=== PATIENT | female | born 1995 | race Caucasian/White ===

== ENCOUNTER 2017-11-01 12:28 | Emergency (ER) | payer MEDICAID ==
[2017-11-01] MEDS ORDERED: NORMAL SALINE 1000 ML 1,000 ML IV ONE (13:43)
[2017-11-01] MEDS ORDERED: METOCLOPRAMIDE HCL INJ/PF 10 MG/2 ML SDV IV ONE (13:43)
--- NOTE | 2017-11-01 13:47 | ER Document Report ---
ED General - General Chief Complaint: Vomiting/Diarrhea Stated Complaint: VOMITING/DIARRHEA Time Seen by Provider: 11/01/17 13:38 Mode of Arrival: Ambulatory Information source: Patient Notes: 22-year-old female who is 13 weeks with a confirmed IUP presents with complaints of nausea vomiting diarrhea. Patient denies any fevers or chills denies any vaginal bleeding. Patient notes intermittent sharp pains in her abdomen TRAVEL OUTSIDE OF THE [place] IN LAST 30 DAYS: No - HPI Onset: Other Onset/Duration: Intermittent Quality of pain: Sharp Severity: Mild Pain Level: 1 Associated symptoms: Diarrhea, Nausea, Vomiting Exacerbated by: Denies Relieved by: Denies Similar symptoms previously: No Recently seen / treated by doctor: No - Related Data Allergies/Adverse Reactions: cefaclor [From Ceclor] Allergy (Unknown, Verified 11/01/17 12:29) Past Medical History - Social History Smoking Status: Never Smoker Cigarette use (# per day): No Chew tobacco use (# tins/day): No Smoking Education Provided: No Frequency of alcohol use: None Drug Abuse: None Family History: Reviewed & Not Pertinent Patient has suicidal ideation: No Patient has homicidal ideation: No Pulmonary Medical History: Denies: Hx Tuberculosis Neurological Medical History: Denies: Hx Seizures Renal/ Medical History: Denies: Hx Peritoneal Dialysis Past Surgical History: Reports: Hx Cholecystectomy, Hx Tonsillectomy. Denies: Hx Pacemaker - Immunizations Hx Diphtheria, Pertussis, Tetanus Vaccination: Yes - 06/27/13 Hx Pneumococcal Vaccination: 06/08/12 Review of Systems - Review of Systems Notes: REVIEW OF SYSTEMS: CONSTITUTIONAL : Denies fever, chills, or sweats. Denies recent illness. EENT: Denies eye, ear, throat, or mouth pain or symptoms. Denies nasal or sinus congestion or discharge. Denies throat, tongue, or mouth swelling or difficulty swallowing. CARDIOVASCULAR: Denies chest pain. Denies palpitations or racing or irregular heart beat. Denies ankle edema. RESPIRATORY: Denies cough, cold, or chest congestion. Denies shortness of breath, difficulty breathing, or wheezing. GASTROINTESTINAL: Admits nausea vomiting diarrhea GENITOURINARY: Denies difficulty urinating, painful urination, burning, frequency, blood in urine, or discharge. FEMALE GENITOURINARY: Denies vaginal bleeding, heavy or abnormal periods, irregular periods. Denies vaginal discharge or odor. MUSCULOSKELETAL: Denies back or neck pain or stiffness. Denies joint pain or swelling. SKIN: Denies rash, lesions or sores. HEMATOLOGIC : Denies easy bruising or bleeding. LYMPHATIC: Denies swollen, enlarged glands. NEUROLOGICAL: Denies confusion or altered mental status. Denies passing out or loss of consciousness. Denies dizziness or lightheadedness. Denies headache. Denies weakness or paralysis or loss of use of either side. Denies problems with gait or speech. Denies sensory loss, numbness, or tingling. Denies seizures. PSYCHIATRIC: Denies anxiety or stress. Denies depression, suicidal ideation, or homicidal ideation. ALL OTHER SYSTEMS REVIEWED AND NEGATIVE. PHYSICAL EXAMINATION: GENERAL: Well-appearing, well-nourished and in no acute distress. HEAD: Atraumatic, normocephalic. EYES: Pupils equal round and reactive to light, extraocular movements intact, conjunctiva are normal. ENT: Nares patent, oropharynx clear without exudates. Moist mucous membranes. NECK: Normal range of motion, supple without lymphadenopathy LUNGS: Breath sounds clear to auscultation bilaterally and equal. No wheezes rales or rhonchi. HEART: Regular rate and rhythm without murmurs ABDOMEN: Soft, nontender, nondistended abdomen. No guarding, no rebound. No masses appreciated. Female : deferred Musculoskeletal: Normal range of motion, no pitting or edema. No cyanosis. NEUROLOGICAL: Cranial nerves grossly intact. Normal speech, normal gait. Normal sensory, motor exams PSYCH: Normal mood, normal affect. SKIN: Warm, Dry, normal turgor, no rashes or lesions noted. Dictation was performed using [employer] voice recognition software Physical Exam - Vital signs Vitals: Temp Pulse Resp BP Pulse Ox 98.2 F 99 20 123/73 98 11/01/17 12:36 11/01/17 12:36 11/01/17 12:36 11/01/17 12:36 11/01/17 12:36 Course - Re-evaluation Re-evalutation: 11/01/17 13:47 Patient's abdominal examination is quite benign, I have low concern for any shoes with intrauterine given the confirmation lack of bleeding and severe pain as well as associated nausea vomiting and diarrhea, I believe this is more of a viral syndrome, IV fluids will be provided as well as nausea control 11/01/17 15:29 Patient states she feels much better is in no distress, patient will be treated for possible UTI as well culture pending After performing a Medical Screening Examination, I estimate there is LOW risk for ACUTE APPENDICITIS, BOWEL OBSTRUCTION, ACUTE CHOLECYSTITIS, PERFORATED DIVERTICULITIS, INCARCERATED HERNIA, PANCREATITIS, PELVIC INFLAMMATORY DISEASE, PERFORATED ULCER, ECTOPIC , or TUBO-OVARIAN ABSCESS, thus I consider the discharge disposition reasonable. Also, there is no evidence or peritonitis , sepsis, or toxicity. I have reevaluated this patient multiple times and no significant life threatening changes are noted. The patient and I have discussed the diagnosis and risks, and we agree with discharging home with close follow-up with the understanding that symptoms and presentations can change. We also discussed returning to the Emergency Department immediately if new or worsening symptoms occur. We have discussed the symptoms which are most concerning (e.g., bloody stool, fever, changing or worsening pain, vomiting) that necessitate immediate return. - Vital Signs Vital signs: Temp Pulse Resp BP Pulse Ox 98.2 F 99 20 123/73 98 11/01/17 12:36 11/01/17 12:36 11/01/17 12:36 11/01/17 12:36 11/01/17 12:36 - Laboratory Result Diagrams: 11/01/17 14:02 11/01/17 14:02 Laboratory results interpreted by me: 11/01/17 11/01/17 14:02 14:40 Seg Neutrophils % 79.0 H Urine Protein 30 H Urine Urobilinogen 4.0 H Ur Leukocyte Esterase LARGE H Discharge - Discharge Clinical Impression: Nausea vomiting and diarrhea UTI in Qualifiers: Trimester: first trimester Qualified Code(s): O23.41 - Unspecified infection of urinary tract in , first trimester Condition: Stable Disposition: HOME, SELF-CARE Instructions: Vomiting ([facility]), Diarrhea, Nonspecific ([facility]) Additional Instructions: Follow up with your physician tomorrow for further care or return to the ED IMMEDIATELY if symptoms worsen or new concerns occur. If you cannot afford to follow up with your primary care physician a list of low cost clinics have been provided at the end of your discharge papers as well. Prescriptions: Metoclopramide HCl [Reglan 10 mg Tablet] 1 - 2 tab PO Q6 #25 tablet Nitrofurantoin Monohyd/M-Cryst [Macrobid 100 mg Capsule] 100 mg PO BID #20 capsule
[2017-11-01] MEDS ORDERED: ACETAMINOPHEN 325 MG TABLET PO ONE (13:48)
[2017-11-01 14:26] LABS: ABSOLUTE EOSINOPHILS # (AUTO) 0.1 10^3/uL (0.0-0.6); ABSOLUTE LYMPHOCYTES (AUTO) 1.2 10^3/uL (0.5-4.7); ABSOLUTE MONOCYTES (AUTO) 0.6 10^3/uL (0.1-1.4); ABSOLUTE NEUT (AUTO) 7.3 10^3/uL (1.7-8.2); BASOPHILS % (AUTO) 0.2 % (0-2); EOSINOPHILS % (AUTO) 0.7 % (0-6); HEMATOCRIT 39.8 % (36.0-47.0); HEMOGLOBIN 13.6 g/dL (12.0-15.5); LYMPHOCYTES % (AUTO) 13.2 % (13-45); MEAN CORPUSCULAR HEMOGLOBIN 28.4 pg (27.0-33.4); MEAN CORPUSCULAR HGB CONC 34.2 g/dL (32.0-36.0); MEAN CORPUSCULAR VOLUME 83 fl (80-97); MONOCYTES % (AUTO) 6.9 % (3-13); PLATELET COUNT 363 10^3/uL (150-450); RED BLOOD COUNT 4.79 10^6/uL (3.72-5.28); RED CELL DISTRIBUTION WIDTH 13.5 % (11.5-14.0); TOTAL CELLS COUNTED % (AUTO) 100 %; WHITE BLOOD COUNT 9.2 10^3/uL (4.0-10.5)
[2017-11-01 14:37] LABS: ALANINE AMINOTRANSFERASE 35 U/L (9-52); ALBUMIN 3.7 g/dL (3.5-5.0); ALKALINE PHOSPHATASE 68 U/L (38-126); ANION GAP 15 (5-19); ASPARTATE AMINO TRANSFERASE 22 U/L (14-36); BILIRUBIN,DIRECT 0.3 mg/dL (0.0-0.4); BILIRUBIN,TOTAL 0.4 mg/dL (0.2-1.3); BLOOD UREA NITROGEN 12 mg/dL (7-20); CALCIUM 9.5 mg/dL (8.4-10.2); CARBON DIOXIDE 24 mmol/L (22-30); CHLORIDE 102 mmol/L (98-107); GLUCOSE 97 mg/dL (75-110); POTASSIUM 4.2 mmol/L (3.6-5.0); SODIUM 140.7 mmol/L (137-145); TOTAL PROTEIN 7.1 g/dL (6.3-8.2)
[2017-11-01 15:00] LABS: APPEARANCE,URINE CLOUDY; BILIRUBIN,URINE NEGATIVE (NEGATIVE); COLOR,URINE AMBER; GLUCOSE, URINE NEGATIVE (NEGATIVE); KETONES,URINE NEGATIVE (NEGATIVE); LEUKOCYTE ESTERASE,URINE LARGE (NEGATIVE); NITRITE,URINE NEGATIVE (NEGATIVE); PROTEIN,URINE 30 mg/dL (NEGATIVE); URINE SPECIFIC GRAVITY 1.031
[2017-11-01 15:38] VITALS: BP 115/67
== END 2017-11-01 15:36 | disposition home or self-care (01) ==
LOC: ER 12:28
DX: O23.41 Unspecified infection of urinary tract in pregnancy, first trimester (principal); O21.8 Other vomiting complicating pregnancy; R19.7 Diarrhea, unspecified; Z3A.13 13 weeks gestation of pregnancy
CPT/HCPCS: 99284; 96361; 96374; 36415; 87086; 85025; 80053; 81001; J3490; J2765; J7030

== ENCOUNTER 2018-03-30 10:34 | Emergency (ER) | payer MEDICAID ==
[2018-03-30] MEDS ORDERED: ACETAMINOPHEN 325 MG TABLET PO ONE (12:03)
[2018-03-30] MEDS ORDERED: DIPHENHYDRAMINE HCL 50 MG CAPSULE PO ONE (12:03)
--- NOTE | 2018-03-30 12:05 | ER Document Report ---
ED Medical Screen (RME) - General Chief Complaint: Abdominal Pain Stated Complaint: POSSIBLE RASH Time Seen by Provider: 03/30/18 11:59 Mode of Arrival: Ambulatory Information source: Patient Notes: Patient presents complaining of a 3 day history of pruritus to abdomen hands and feet. Patient states that the hands and feet also have a burning sensation. Patient additionally complains of upper abdominal pain for the past week with nausea. Patient is currently 35 weeks . I have greeted and performed a rapid initial assessment of this patient. A comprehensive ED assessment and evaluation of the patient, analysis of test results and completion of the medical decision making process will be conducted by additional ED providers. TRAVEL OUTSIDE OF THE [place] IN LAST 30 DAYS: No - Related Data Allergies/Adverse Reactions: cefaclor [From Ceclor] Allergy (Unknown, Verified 03/30/18 10:36) Past Medical History Pulmonary Medical History: Denies: Hx Tuberculosis Neurological Medical History: Denies: Hx Seizures Renal/ Medical History: Denies: Hx Peritoneal Dialysis Past Surgical History: Reports: Hx Cholecystectomy, Hx Tonsillectomy. Denies: Hx Pacemaker - Immunizations Hx Diphtheria, Pertussis, Tetanus Vaccination: Yes - 06/27/13 Physical Exam - Vital signs Vitals: Temp Pulse Resp BP Pulse Ox 97.7 F 85 20 118/64 99 03/30/18 11:20 03/30/18 11:20 03/30/18 11:20 03/30/18 11:20 03/30/18 11:20 - Abdominal Inspection: Gravid female Tenderness: Tender - Epigastric, right upper quadrant left upper quadrant tenderness Course - Vital Signs Vital signs: Temp Pulse Resp BP Pulse Ox 97.7 F 85 20 118/64 99 03/30/18 11:20 03/30/18 11:20 03/30/18 11:20 03/30/18 11:20 03/30/18 11:20
[2018-03-30 12:58] LABS: ALANINE AMINOTRANSFERASE 167 U/L (9-52); ALBUMIN 3.2 g/dL (3.5-5.0); ALKALINE PHOSPHATASE 134 U/L (38-126); ANION GAP 10 (5-19); ASPARTATE AMINO TRANSFERASE 124 U/L (14-36); BILIRUBIN,DIRECT 0.5 mg/dL (0.0-0.4); BILIRUBIN,TOTAL 0.8 mg/dL (0.2-1.3); BLOOD UREA NITROGEN 7 mg/dL (7-20); CALCIUM 8.8 mg/dL (8.4-10.2); CARBON DIOXIDE 23 mmol/L (22-30); CHLORIDE 106 mmol/L (98-107); GLUCOSE 81 mg/dL (75-110); LIPASE 91.2 U/L (23-300); POTASSIUM 3.9 mmol/L (3.6-5.0); SODIUM 138.7 mmol/L (137-145); TOTAL PROTEIN 6.7 g/dL (6.3-8.2)
[2018-03-30 13:33] LABS: AMORPHOUS SEDIMENT,URINE TRACE /HPF; APPEARANCE,URINE SLIGHTLY-CLOUDY; BILIRUBIN,URINE SMALL (NEGATIVE); COLOR,URINE AMBER; GLUCOSE, URINE NEGATIVE (NEGATIVE); KETONES,URINE NEGATIVE (NEGATIVE); LEUKOCYTE ESTERASE,URINE NEGATIVE (NEGATIVE); NITRITE,URINE NEGATIVE (NEGATIVE); PROTEIN,URINE 30 mg/dL (NEGATIVE); URINE SPECIFIC GRAVITY 1.027
--- NOTE | 2018-03-30 13:40 | ER Document Report ---
ED GI/ - General Chief Complaint: Abdominal Pain Stated Complaint: POSSIBLE RASH Time Seen by Provider: 03/30/18 11:59 Mode of Arrival: Ambulatory Information source: Patient Notes: Patient is a 22-year-old 002 at 35 weeks by ultrasound who presents today with some intermittent "itching and hotness" to her hands and feet. She now started to develop some intermittent brief episodes of some epigastric discomfort. She denies any radiation. She denies any chest pain or shortness of breath. She denies any cough, calf pain or leg swelling. TRAVEL OUTSIDE OF THE [place] IN LAST 30 DAYS: No - HPI Patient complains to provider of: Other - See above Onset: Other Timing/Duration: Intermittent Quality of pain: Other Severity at maximum: Mild Severity in ED: None Pain Level: Denies Location: Other - See above Vaginal bleeding (Compared to normal period): None heart tones (bpm): 138 Sexual history: Active Associated symptoms: Other - See above Exacerbated by: Denies Relieved by: Denies - Related Data Allergies/Adverse Reactions: cefaclor [From Ceclor] Allergy (Unknown, Verified 03/30/18 10:36) Past Medical History - General Information source: Patient - Social History Smoking Status: Unknown if Ever Smoked Family History: Reviewed & Not Pertinent Pulmonary Medical History: Denies: Hx Tuberculosis Neurological Medical History: Denies: Hx Seizures Renal/ Medical History: Denies: Hx Peritoneal Dialysis Past Surgical History: Reports: Hx Cholecystectomy, Hx Tonsillectomy. Denies: Hx Pacemaker - Immunizations Hx Diphtheria, Pertussis, Tetanus Vaccination: Yes - 06/27/13 Hx Pneumococcal Vaccination: 06/08/12 Review of Systems - Review of Systems Constitutional: denies: Fever EENT: denies: Eye discharge, Nose discharge Cardiovascular: denies: Chest pain, Palpitations Respiratory: denies: Short of breath Gastrointestinal: denies: Vomiting Genitourinary: denies: Dysuria Musculoskeletal: denies: Leg swelling Skin: Other - no hives. denies: Rash Neurological/Psychological: Other - no slurred speech -: Yes All other systems reviewed and negative Physical Exam - Vital signs Vitals: Temp Pulse Resp BP Pulse Ox 97.7 F 85 20 118/64 99 03/30/18 11:20 03/30/18 11:20 03/30/18 11:20 03/30/18 11:20 03/30/18 11:20 Notes: Reviewed vital signs and nursing note as charted by RN. CONSTITUTIONAL: Alert and oriented and responds appropriately to questions. Well -appearing; well-nourished HEAD: Normocephalic; atraumatic EYES: Sclerae non-icteric ENT: Normal nose; no rhinorrhea; moist mucous membranes; pharynx without lesions noted NECK: Supple without meningismus; non-tender; no cervical lymphadenopathy, no masses CARD: Regular rate and rhythm; no murmurs, no clicks, no rubs, no gallops; symmetric distal pulses RESP: Normal chest excursion without splinting or tachypnea; breath sounds clear and equal bilaterally; no wheezes, no rhonchi, no rales ABD/GI: Normal bowel sounds; gravid consistent with dates; no tenderness to deep palpation of all 4 quadrants of the abdomen BACK: The back appears normal and is non-tender to palpation, there is no CVA tenderness EXT: Normal ROM in all joints; non-tender to palpation; no edema SKIN: Normal color for age and race; warm; dry; no acute lesions noted NEURO: Moves all extremities equally; Motor and sensory function intact PSYCH: The patient's mood and manner are appropriate. Grooming and personal hygiene are appropriate. Course - Re-evaluation Re-evalutation: 03/30/18 13:42 Given the above history and physical examination, with previous cholecystectomy , we ordered a liver panel, lipase, and a CBC and chemistry. Patient's liver panel as recorded. Platelets as recorded. Patient still has no tenderness. No cough or chest pain to indicate a pulmonary pathology. I have called and consulted [facility], Dr. Ruiz Castro who is asked me to send the patient upstairs to labor and delivery. Patient will be discharged from the facility and sent upstairs expeditiously. - Vital Signs Vital signs: Temp Pulse Resp BP Pulse Ox 97.7 F 85 20 118/64 99 03/30/18 11:20 03/30/18 11:20 03/30/18 11:20 03/30/18 11:20 03/30/18 11:20 - Laboratory Result Diagrams: 03/30/18 12:25 03/30/18 12:25 Laboratory results interpreted by me: 03/30/18 12:25 Direct Bilirubin 0.5 H AST 124 H ALT 167 H Alkaline Phosphatase 134 H Albumin 3.2 L Discharge - Discharge Clinical Impression: Transaminitis and not yet delivered Qualifiers: Trimester: third trimester Qualified Code(s): Z34.93 - Encounter for supervision of normal , unspecified, third trimester Condition: Good Disposition: HOME, SELF-CARE Additional Instructions: Please go directly upstairs to labor and delivery as we have expedited for you.
[2018-03-30 14:02] LABS: ABSOLUTE BASOPHILS # (AUTO) 0.1 10^3/uL (0.0-0.2); ABSOLUTE EOSINOPHILS # (AUTO) 0.1 10^3/uL (0.0-0.6); ABSOLUTE LYMPHOCYTES (AUTO) 1.8 10^3/uL (0.5-4.7); ABSOLUTE MONOCYTES (AUTO) 0.7 10^3/uL (0.1-1.4); ABSOLUTE NEUT (AUTO) 6.7 10^3/uL (1.7-8.2); BASOPHILS % (AUTO) 0.5 % (0-2); EOSINOPHILS % (AUTO) 1.5 % (0-6); HEMATOCRIT 34.4 % (36.0-47.0); HEMOGLOBIN 11.7 g/dL (12.0-15.5); LYMPHOCYTES % (AUTO) 19.1 % (13-45); MEAN CORPUSCULAR HEMOGLOBIN 28.3 pg (27.0-33.4); MEAN CORPUSCULAR VOLUME 83 fl (80-97); MONOCYTES % (AUTO) 7.6 % (3-13); PLATELET COUNT 309 10^3/uL (150-450); RED BLOOD COUNT 4.12 10^6/uL (3.72-5.28); RED CELL DISTRIBUTION WIDTH 12.9 % (11.5-14.0); SEGMENTED NEUTROPHILS % (AUTO) 71.3 % (42-78); TOTAL CELLS COUNTED % (AUTO) 100 %; WHITE BLOOD COUNT 9.3 10^3/uL (4.0-10.5)
[2018-03-30 14:20] VITALS: BP 114/67
== END 2018-03-30 14:00 | disposition home or self-care (01) ==
LOC: ER 10:34
DX: O26.893 Other specified pregnancy related conditions, third trimester (principal); R74.8 Abnormal levels of other serum enzymes; R10.13 Epigastric pain; O99.713 Diseases of the skin and subcutaneous tissue complicating pregnancy, third trimester; L29.9 Pruritus, unspecified; Z3A.35 35 weeks gestation of pregnancy; Z88.1 Allergy status to other antibiotic agents; Z90.49 Acquired absence of other specified parts of digestive tract
CPT/HCPCS: 99284; 36415; 83690; 85025; 80053; 81001; J3490 ×2

== ENCOUNTER 2018-03-30 14:02 | Outpatient (CLI) | payer MEDICAID ==
[2018-03-30] MEDS ORDERED: URSODIOL 300 MG CAPSULE PO ONE (15:00)
--- NOTE | 2018-03-30 16:03 | Non Stress Test Report ---
Non Stress Test Datetime Report Generated by CPN: 03/30/2018 16:03 DEMOGRAPHIC EGA NST: 32.3 INDICATION Indication for Study: Ordered by Provider Indication for Study: Ordered by Provider VITAL SIGNS Temperature - NST: 98.2 Pulse - NST: 74 RESP - NST: 16 NBPSYS NST: 89 NBPDIA NST: 54 MONITORING Monitor Explained: Monitor Explained; Test Explained; Patient Verbalized Understanding Time on Monitor: 03/30/2018 14:25 Time on Monitor: 03/30/2018 14:19 Time off Monitor: 03/30/2018 15:55 Time off Monitor: 03/30/2018 15:55 NST Duration: 90 NST Duration: 96 NST INTERVENTIONS NST Interventions: PO Hydration NST Interventions: PO Hydration Physician Notified NST: Dr. Castro Physician Notified NST: Dr. Castro BABY A: [id number] BABY A Movement : Present Movement : Present Contraction Frequency : 0 Contraction Frequency : Irregular (Annotations: Data stored by [facility] on behalf of user) FHR Baseline : 135 Accelerations : 15X15 Accelerations : 15X15 Decelerations : None Decelerations : None Variability : Moderate 6-25bpm Variability : Moderate 6-25bpm NST Review: Meets Criteria for Reactive NST NST Review: Meets Criteria for Reactive NST NST Review and Verified By : Giovanni Porter RN NST Review and Verified By : BRIANDA MonaeT Results: Reactive NST REPORT Report Trigger: Send Report
== END 2018-03-30 16:00 | disposition home or self-care (01) ==
LOC: LC 14:02
PROVIDERS: ATTEND Obstetrics & Gynecology
PROC: 4A1HXCZ Monitoring of Products of Conception, Cardiac Rate, External Approach (ICD-10-PCS; principal; 2018-03-30)
DX: Z34.93 Encounter for supervision of normal pregnancy, unspecified, third trimester (principal)
CPT/HCPCS: 59025; 36415; 82239; J3490

== ENCOUNTER 2018-04-07 09:21 | Outpatient (CLI) | payer MEDICAID ==
--- NOTE | 2018-04-07 09:54 | Non Stress Test Report ---
Non Stress Test Datetime Report Generated by CPN: 04/07/2018 09:53 DEMOGRAPHIC EGA NST: 33.4 INDICATION Indication for Study: Ordered by Provider MONITORING Time on Monitor: 04/07/2018 09:30 Time off Monitor: 04/07/2018 09:50 NST Duration: 20 NST INTERVENTIONS NST Interventions: PO Hydration Physician Notified NST: A. Mulligan, CNM BABY A: [id number] BABY A Movement : Present Contraction Frequency : 0 FHR Baseline : 135 Accelerations : 15X15 Accelerations : 15X15 Decelerations : None Variability : Moderate 6-25bpm NST Review: Meets Criteria for Reactive NST NST Review: Meets Criteria for Reactive NST NST Review and Verified By : BRIANDA BAZZI Results: Reactive NST Results: Reactive NST REPORT Report Trigger: Send Report
== END 2018-04-07 09:54 | disposition home or self-care (01) ==
LOC: LC 09:21
PROVIDERS: ATTEND Obstetrics & Gynecology
PROC: 4A1HXCZ Monitoring of Products of Conception, Cardiac Rate, External Approach (ICD-10-PCS; principal; 2018-04-07)
DX: Z34.93 Encounter for supervision of normal pregnancy, unspecified, third trimester (principal)
CPT/HCPCS: 59025

== ENCOUNTER 2018-04-10 14:47 | Outpatient (CLI) | payer MEDICAID ==
--- NOTE | 2018-04-10 15:34 | Non Stress Test Report ---
Non Stress Test Datetime Report Generated by CPN: 04/10/2018 15:34 DEMOGRAPHIC EGA NST: 34.0 INDICATION Indication for Study: Ordered by Provider MONITORING Monitor Explained: Monitor Explained; Test Explained; Patient Verbalized Understanding Time on Monitor: 04/10/2018 14:58 Time off Monitor: 04/10/2018 15:33 NST Duration: 35 NST INTERVENTIONS NST Interventions: PO Hydration Physician Notified NST: Artis, CNM BABY A: [id number] BABY A Movement : Present Contraction Frequency : 0 Accelerations : 15X15 Decelerations : None Variability : Moderate 6-25bpm NST Review: Meets Criteria for Reactive NST NST Review and Verified By : Nadia Camp RNC NST Results: Reactive NST REPORT Report Trigger: Send Report
[2018-04-10 16:15] LABS: ALANINE AMINOTRANSFERASE 57 U/L (9-52); ALKALINE PHOSPHATASE 118 U/L (38-126); AMYLASE 32 U/L (30-110); ASPARTATE AMINO TRANSFERASE 36 U/L (14-36); BILIRUBIN,DIRECT 0.5 mg/dL (0.0-0.4); BILIRUBIN,TOTAL 0.5 mg/dL (0.2-1.3); TOTAL PROTEIN 5.9 g/dL (6.3-8.2)
== END 2018-04-10 16:27 | disposition home or self-care (01) ==
LOC: LC 14:47
PROVIDERS: ATTEND Obstetrics & Gynecology Gynecology
PROC: 4A1HXCZ Monitoring of Products of Conception, Cardiac Rate, External Approach (ICD-10-PCS; principal; 2018-04-10)
DX: Z34.83 Encounter for supervision of other normal pregnancy, third trimester (principal)
CPT/HCPCS: 36415; 59025; 80076; 82150; 83690

== ENCOUNTER 2018-04-30 19:35 | Inpatient (IN) | payer MEDICAID ==
[2018-04-30] MEDS ORDERED: RINGERS SOLUTION,LACTATED 1,000 ML IV ONE (20:18)
[2018-04-30] MEDS ORDERED: OXYTOCIN/NORMAL SALINE 20 UNIT/1,000 ML RTUINJ IV PRN (20:18)
[2018-04-30 20:45] LABS: APPEARANCE,URINE CLOUDY; BILIRUBIN,URINE SMALL (NEGATIVE); CALCIUM OXALATE CRYSTALS,URINE TOO NUMEROUS TO CNT /HPF; GLUCOSE, URINE NEGATIVE (NEGATIVE); KETONES,URINE NEGATIVE (NEGATIVE); LEUKOCYTE ESTERASE,URINE MODERATE (NEGATIVE); NITRITE,URINE NEGATIVE (NEGATIVE); PROTEIN,URINE 30 mg/dL (NEGATIVE); URINE SPECIFIC GRAVITY 1.031
[2018-04-30 20:46] LABS: COLOR,URINE YELLOW
--- NOTE | 2018-04-30 20:50 | Admission Physical ---
Datetime Report Generated by CPN: 04/30/2018 20:50 CURRENT ADMISSION Chief Complaint: Scheduled Induction of Labor Indication for Induction: Polyhydramnios; Other Indication for Induction- Other: Cholestasis, polyhydramnios Admit Impression : Term, Intrauterine ; No Active Labor; Intact Membranes; Induction of Labor Admit Impression- Other: TOLAC Admit Plan: Admit to Unit; Initiate Labor Induction Protocol ALLERGIES Medication Allergies: Yes Medication Allergies: cefaclor (03/30/2018) OBSTETRICAL HISTORY EDC: 05/22/2018 00:00 : 3 Para: 2 Livin PHYSICAL EXAM General: Normal HEENT: Normal Neurologic: Normal Thyroid: Deferred Heart: Normal Lungs: Normal Breast: Deferred Back: Normal Abdomen: Normal Genitourinary Exam: Normal Extremities: Normal DTRs: Normal Pelvic Type: Adequate Vital Signs: Reviewed VAGINAL EXAM Contraction Comments: none MEMBRANES Membranes: Intact FETUS A EGA: 36.6 Monitoring: External US FHR- Baseline: 130 Variability: Moderate 6-25bpm Accelerations: 15X15 Decelerations: None FHR Category: Category I Presentation: Vertex Admit Comment: 22yo at 36+6ega presents for IOL due to cholestasis of with polyhydramnios. H/o in 2011 with 7#11 at 40wks, G2 was Primary C/S for suspected macrosomia (after IOL attempt) 9#5oz. She desires TOLAC. SHe has been counseled regarding risks (maternal/) of TOLAC and desires TOLAC. She was diagnosed with Cholstasis of with Bile acids of 14.8 at 33wks and started on ursodiol. GBS negative. IOL with Cooks catheter and low dose pitocin. Anticipate . INFORMED CONSENT Informed Consent Obtained: Vaginal Delivery; Induction of Labor; Vaginal After ; Risks, Benefits and Alternatives Discussed Signature: with User ID: [email or web address]
[2018-04-30 20:58] LABS: URINE AMPHETAMINES SCREEN NEGATIVE; URINE BARBITURATES SCREEN NEGATIVE; URINE BENZODIAZEPINES SCREEN NEGATIVE; URINE COCAINE SCREEN NEGATIVE; URINE MARIJUANA (THC) SCREEN NEGATIVE; URINE METHADONE SCREEN NEGATIVE; URINE PHENCYCLIDINE SCREEN NEGATIVE
[2018-04-30 20:58] LABS: ABSOLUTE EOSINOPHILS # (AUTO) 0.1 10^3/uL (0.0-0.6); ABSOLUTE LYMPHOCYTES (AUTO) 1.6 10^3/uL (0.5-4.7); ABSOLUTE MONOCYTES (AUTO) 0.6 10^3/uL (0.1-1.4); ABSOLUTE NEUT (AUTO) 5.6 10^3/uL (1.7-8.2); BASOPHILS % (AUTO) 0.4 % (0-2); EOSINOPHILS % (AUTO) 1.2 % (0-6); HEMATOCRIT 32.3 % (36.0-47.0); HEMOGLOBIN 10.8 g/dL (12.0-15.5); LYMPHOCYTES % (AUTO) 20.5 % (13-45); MEAN CORPUSCULAR HEMOGLOBIN 27.1 pg (27.0-33.4); MEAN CORPUSCULAR HGB CONC 33.4 g/dL (32.0-36.0); MEAN CORPUSCULAR VOLUME 81 fl (80-97); MONOCYTES % (AUTO) 8.1 % (3-13); PLATELET COUNT 319 10^3/uL (150-450); RED BLOOD COUNT 3.97 10^6/uL (3.72-5.28); RED CELL DISTRIBUTION WIDTH 13.6 % (11.5-14.0); SEGMENTED NEUTROPHILS % (AUTO) 69.8 % (42-78); TOTAL CELLS COUNTED % (AUTO) 100 %
[2018-04-30 21:20] LABS: INTERNATIONAL RATION (INR) 0.91; PROTHROMBIN TIME 12.7 SEC (11.4-15.4)
[2018-04-30 21:21] LABS: ALANINE AMINOTRANSFERASE 120 U/L (9-52); ALBUMIN 3.2 g/dL (3.5-5.0); ALKALINE PHOSPHATASE 152 U/L (38-126); ANION GAP 12 (5-19); ASPARTATE AMINO TRANSFERASE 90 U/L (14-36); BILIRUBIN,DIRECT 0.3 mg/dL (0.0-0.4); BILIRUBIN,TOTAL 0.6 mg/dL (0.2-1.3); BLOOD UREA NITROGEN 10 mg/dL (7-20); CALCIUM 9.2 mg/dL (8.4-10.2); CARBON DIOXIDE 23 mmol/L (22-30); CHLORIDE 105 mmol/L (98-107); GLUCOSE 105 mg/dL (75-110); PARTIAL THROMBOPLASTIN TIME 28.5 SEC (23.5-35.8); SODIUM 140.4 mmol/L (137-145); TOTAL PROTEIN 6.5 g/dL (6.3-8.2)
[2018-04-30] MEDS ORDERED: OXYTOCIN/NORMAL SALINE 20 UNIT/1,000 ML RTUINJ ONE (21:53)
[2018-04-30] MEDS: RINGERS SOLUTION,LACTATED 1,000 ML IV PRN (22:10)
--- NOTE | 2018-04-30 22:28 | L&D Progress Notes ---
PROGRESS NOTES Datetime Report Generated by CPN: 04/30/2018 22:28 PROGRESS NOTE Impression: Reassuring Heart Rate Procedures: Sterile Vag Exam Plan: Continue Present Management; Induction; Cervical Ripening Informed Consent Obtained: Vaginal Delivery; Induction of Labor; Risks, Benefits and Alternatives Discussed Informed Consent Obtained: Vaginal Delivery; Induction of Labor; Vaginal After ; Risks, Benefits and Alternatives Discussed Vital Signs : Reviewed Comment: EFW 7#10oz on US on 04/24 at 36wks. MVP/SDP 8.44cm. Cvx now 1cm and cooks catheter placed and will begin low dose pitocin. All notified of TOLAC and consents signed and reviewed. VAGINAL EXAM Dilatation: 1 Effacement: thick Station: hi Contractions: none MEMBRANES Membranes: Intact FETUS A FHR - Baseline: 120 Monitoring: External US Variability: Moderate 6-25bpm Accelerations: 15X15 Decelerations: None FHR Category: Category I Estimated Weight (gm): 3447 Presentation: Vertex SIGNATURE SIGNATURE: [id number];14,[id number];13,[id number] SIGNATURE: [id number];14,[id number] SIGNATURE: [id number] SIGNATURE: [id number] SIGNATURE: [id number] Signature: with User ID: [email or web address]
[2018-05-01] MEDS ORDERED: ACETAMINOPHEN 325 MG TABLET ONE ×3 (03:49→22:41)
[2018-05-01] MEDS ORDERED: ACETAMINOPHEN 325 MG TABLET PO ONE (04:10)
[2018-05-01] MEDS: RINGERS SOLUTION,LACTATED 1,000 ML IV PRN ×4 (07:14→18:18)
--- NOTE | 2018-05-01 08:00 | L&D Progress Notes ---
PROGRESS NOTES Datetime Report Generated by CPN: 05/01/2018 08:00 PROGRESS NOTE Impression: Normal Progression of Labor Procedures: Sterile Vag Exam Plan: Continue Present Management; Induction; Cervical Ripening Informed Consent Obtained: Vaginal Delivery; Induction of Labor; Risks, Benefits and Alternatives Discussed Comment: IOL for cholestasis. Cooks catheter in both bulbs - removed. Cvx now but not in active labor yet. Pt desires epidural. Plan epidural and then US for presentation again prior to AROM. Vtx by US now. Pt verbalized understanding of plan to continue with IOL with pitocin and ok for epidural. Would try to delay AROM for now until baby more well applied to cervix. VAGINAL EXAM Dilatation: 5 Effacement: 60 Station: -3 Contractions: q 2-4 FETUS A FHR - Baseline: 155 Monitoring: External US Variability: Moderate 6-25bpm Accelerations: 15X15 Decelerations: None FHR Category: Category I FETUS C SIGNATURE: [id number];14,[id number];[id number] Signature: with User ID: [email or web address]
[2018-05-01] MEDS ORDERED: EPHEDRINE SULFATE INJ 50 MG/1 ML AMPULE ONE (08:02)
[2018-05-01] MEDS ORDERED: FENTANYL/BUPIVACAINE/NS/PF 300 MCG/150 ML RTUINJ EPI ONE ×2 (08:03→21:37)
[2018-05-01] MEDS ORDERED: BUPIVACAINE HCL 0.5 % INJ/PF 30 ML SDV ONE (08:03)
[2018-05-01] MEDS ORDERED: OXYTOCIN 10 UNIT/ML VIAL ONE (08:28)
[2018-05-01] MEDS ORDERED: LIDOCAINE 1% INJ-PF (10 MG/ML) 30 ML SDV ONE (08:29)
[2018-05-01] MEDS ORDERED: OXYTOCIN/NORMAL SALINE 0 UNIT/0 ML RTUINJ ONE (08:29)
[2018-05-01] MEDS ORDERED: MISOPROSTOL 0.2 MG TABLET ONE (08:29)
[2018-05-01] MEDS ORDERED: ACETAMINOPHEN 325 MG TABLET PO PRN (09:43)
--- NOTE | 2018-05-01 13:37 | L&D Progress Notes ---
PROGRESS NOTES Datetime Report Generated by CPN: 05/01/2018 13:37 PROGRESS NOTE Impression Other: IUP @37w- IOL Procedures: Artificial ROM; Scalp Electrode; Sterile Vag Exam Plan: Continue Present Management Informed Consent Obtained: Vaginal Delivery; Induction of Labor; Vaginal After ; Risks, Benefits and Alternatives Discussed Vital Signs : Reviewed; Within Normal Limits Comment: S: comfortable with epidural placement, agreeable to AROM O:vss, cervix as stated, pit @ 20mu/min A: IUP @ 37w-IOL secondary to cholestasis, polyhydramnios attempting , AROM-cephalic presentation verified via u/s prior to procedure. Large amount of clear fluid, fse inserted also without difficulty, pt. tolerated well P: continue IOL, reasses as clinically indicated, earlier prn MEMBRANES Membranes: Ruptured Amniotic Fluid Color: Clear FETUS A FHR - Baseline: 130 Monitoring: External US; Internal Scalp Electrode Variability: Moderate 6-25bpm Accelerations: 15X15 FHR Category: Category I FHR Comments: no decels prior to AROM some variables after which resolved with repositioning FETUS C SIGNATURE: [id number];14,[id number];13,[id number] Assignment: Rosy Vaughn MD Signature: with User ID: [email or web address] : with User ID: [email or web address]
[2018-05-01] MEDS ORDERED: ONDANSETRON HCL INJ/PF 4 MG/2 ML SDV ONE (17:57)
--- NOTE | 2018-05-01 19:26 | L&D Progress Notes ---
PROGRESS NOTES Datetime Report Generated by CPN: 05/01/2018 19:26 PROGRESS NOTE Impression: Normal Progression of Labor Procedures: Sterile Vag Exam Plan: Continue Present Management Informed Consent Obtained: Vaginal Delivery Vital Signs : Reviewed; Within Normal Limits Comment: Pt progressing and comfortable; pit at 8 VAGINAL EXAM Dilatation: 7-8 Effacement: 80-90 Station: -2 Contractions: q2-3 MEMBRANES Membranes: Ruptured FETUS A FHR - Baseline: 140s Variability: Moderate 6-25bpm Accelerations: 15X15 Decelerations: None FHR Category: Category I : 37.0 FETUS C SIGNATURE: [id number];[id number];10,[id number] Signature: with User ID: [email or web address]
[2018-05-01] MEDS ORDERED: MEASLES,MUMPS&RUBELLA VACC/PF 0.5 ML VIAL SUBCUT PRN (22:34)
[2018-05-01] MEDS ORDERED: ZOLPIDEM TARTRATE 5 MG TABLET PO PRN (22:34)
[2018-05-01] MEDS ORDERED: ACETAMINOPHEN WITH CODEINE #3 TABLET PO PRN ×2 (22:34)
[2018-05-01] MEDS ORDERED: DIPH/PERTUSS(ACELL)/TETANUS VAC/PF 0.5 ML SYR (>=10YO) IM PRN (22:34)
[2018-05-01] MEDS ORDERED: DIBUCAINE 1% OINTMENT 28 GM TP PRN (22:34)
[2018-05-01] MEDS ORDERED: OXYTOCIN/NORMAL SALINE 20 UNIT/1,000 ML RTUINJ IV PRN (22:34)
[2018-05-01] MEDS ORDERED: BENZOCAINE/MENTHOL AEROSOL SPRAY 56 ML TOP PRN (22:34)
[2018-05-01] MEDS ORDERED: IBUPROFEN 800 MG TABLET ONE (22:41)
[2018-05-01] MEDS ORDERED: OXYTOCIN/NORMAL SALINE 20 UNIT/1,000 ML RTUINJ ONE (22:42)
--- NOTE | 2018-05-01 23:15 | Warning Signs in Babies ---
VOD Warning Signs Datetime Report Generated by N: 05/01/2018 23:15 VOD#608 -Warning Signs in Babies: Viewed with Parent(s)/Family (05/01/2018 23:00:Gunjan Olsen RN)
--- NOTE | 2018-05-02 00:06 | Delivery Summary ---
Del Sum A-C Datetime Report Generated by CPN: 05/02/2018 00:06 DELIVERY PERSONNEL DELIVERY PERSONNEL: [id number] Delivery Doctor:: Rosy Vaughn MD Labor and Delivery Nurse:: Gunjan Olsen RNdesk attendant Nurse:: Sagrario Duran RN Senior Marketing Data Analyst/INFORMATICIST: Katie Wills, BIOLOGICAL SCIENCE TECHNICIAN FISH MATERNAL INFORMATION Delivery Anesthesia: Epidural Medications During Delivery: Cytotec 800 mcg TN Medications After Delivery: Pitocin Drip 20 Units/1000ml NSS; Cytotec 800mcg Per Rectum/Vagina Estimated Blood Loss (ml): 400 ml Maternal Complications: Other Complication Details: TOLAC Provider Comments: of a viable female at 2216 with an OA presentation; APGARS 8@1, 9@5; no lacerations LABOR SUMMARY EDC: 05/22/2018 00:00 No. Babies in Womb: 1 Attempted: Yes Labor Anesthesia: Epidural LABOR INFORMATION Reason for Induction: Polyhydramnios; Other Reason for Induction- Other: Cholestasis Onset of Labor: 05/01/2018 08:00 Complete Dilatation: 05/01/2018 22:03 Cervical Ripening Agents: Mallory Balloon Oxytocin: Induction Group B Beta Strep: Negative Antibiotics # of Doses: 0 Steroids Given: None Reason Steroids Not Administered: Not Applicable MEMBRANES Membranes Rupture Method: Artificial Rupture of Membranes: 05/01/2018 12:55 Length of Rupture (hr): 9.35 Amniotic Fluid Color: Clear Amniotic Fluid Amount: Large Amniotic Fluid Odor: None STAGES OF LABOR Stage 1 hr: 14 Stage 1 min: 3 Stage 2 hr: 0 Stage 2 min: 13 Stage 3 hr: 0 Stage 3 min: 3 Total Time in Labor hr: 14 Total Time in Labor min: 19 VAGINAL DELIVERY Episiotomy: None Laceration #1: None Laceration Extension #1: N/A Laceration Repair: Not Applicable Sponge Count Correct: N/A Sharps Count Correct: N/A CSECTION DELIVERY Primary Indication: N/A Secondary Indication: N/A CSection Incidence: N/A Labor: N/A Elective: N/A CSection Incision: N/A BABY A INFORMATION Infant Delivery Date/Time: 05/01/2018 22:16 Method of Delivery: Vaginal Born in Route : No : Successful Forceps: N/A Vacuum Extraction: N/A Shoulder Dystocia : No PRESENTATION/POSITION BABY A Presentation: Cephalic Cephalic Presentation: Vertex Vertex Position: Left Occipital Anterior Breech Presentation: N/A PLACENTA INFORMATION BABY A Placenta Delivery Time : 05/01/2018 22:19 Placenta Method of Delivery: Spontaneous Placenta Status: Delivered SCORES BABY A Heart Rate 1 min: >100 bpm Resp Effort 1 min: Good Cry Reflex Irritability 1 min: Cough or Sneeze or Pulls Away Muscle Tone 1 min: Active Motion Color 1 min: Blue/Pale Resuscitation Effort 1 min: Tactile Stimulation SCORE 1 MIN: 8 Heart Rate 5 min: >100 bpm Resp Effort 5 min: Good Cry Reflex Irritability 5 min: Cough or Sneeze or Pulls Away Muscle Tone 5 min: Active Motion Color 5 min: Body Red Dog [place], Extremities Blue Resuscitation Effort 5 min: Tactile Stimulation SCORE 5 MIN: 9 INFORMATION BABY A Gestational Age at Delivery: 37.0 Gestational Status: Early Term- 37- 38.6 Weeks Outcome : Liveborn Infant Condition : Stable Sex: Female IDENTIFICATION BABY A Verification Date/Time: 05/01/2018 22:27 ID Band Number: [id number] Mother's Name Verified: Yes Infant RN Verifying Infant: Marcio Olsen RN Additional Verifying Personnel: [employer] [place] [address] WEIGHT/LENGTH BABY A Infant Birthweight (gm): 2960 Weight (lb): 6 Weight (oz): 8 Length (in): 20.00 Length (cm): 50.80 CORD INFORMATION BABY A No. Cord Vessels: 3 Nuchal Cord : N/A Cord Blood Taken: Yes-For Storage (Mom's Blood type +) Suction: Mouth; Nose ASSESSMENT BABY A Infant Complications: None Physical Findings at Delivery: Within Normal Limits Respirations: Appears Normal Skin to Skin: Yes Echocardiographer/ALS Called : No Care By: J. Ackerman RN Transferred To: Remains with Mother BABY B INFORMATION : N/A SIGNATURES Signature: with User ID: [email or web address]
[2018-05-02 05:52] LABS: HEMATOCRIT 27.4 % (36.0-47.0); HEMOGLOBIN 9.2 g/dL (12.0-15.5); INTERNATIONAL RATION (INR) 1.05; MEAN CORPUSCULAR HGB CONC 33.5 g/dL (32.0-36.0); MEAN CORPUSCULAR VOLUME 81 fl (80-97); PLATELET COUNT 222 10^3/uL (150-450); PROTHROMBIN TIME 14.2 SEC (11.4-15.4)
[2018-05-02 05:53] LABS: PARTIAL THROMBOPLASTIN TIME 34.6 SEC (23.5-35.8)
[2018-05-02 06:03] LABS: ALANINE AMINOTRANSFERASE 135 U/L (9-52); ALBUMIN 2.2 g/dL (3.5-5.0); ALKALINE PHOSPHATASE 112 U/L (38-126); ANION GAP 11 (5-19); ASPARTATE AMINO TRANSFERASE 103 U/L (14-36); BILIRUBIN,DIRECT 0.3 mg/dL (0.0-0.4); BILIRUBIN,TOTAL 0.7 mg/dL (0.2-1.3); BLOOD UREA NITROGEN 6 mg/dL (7-20); CARBON DIOXIDE 21 mmol/L (22-30); CHLORIDE 107 mmol/L (98-107); GLUCOSE 100 mg/dL (75-110); SODIUM 138.6 mmol/L (137-145); TOTAL PROTEIN 4.9 g/dL (6.3-8.2)
[2018-05-02 06:18] LABS: WHITE BLOOD COUNT 20.5 10^3/uL (4.0-10.5)
[2018-05-02] MEDS: IBUPROFEN 800 MG TABLET PO SCH ×3 (06:36→22:12)
[2018-05-02] MEDS: FERROUS SULFATE 325 MG TABLET PO SCH ×2 (09:56→17:13)
[2018-05-02] MEDS: DOCUSATE SODIUM 100 MG CAPSULE PO SCH ×2 (09:56→17:13)
[2018-05-02] MEDS: PRENATAL VITAMIN W DHA CAPSULE PO SCH (09:56)
[2018-05-02] MEDS: SENNOSIDES/DOCUSATE 8.6-50 MG 1 EACH TABLET PO SCH (09:56)
--- NOTE | 2018-05-02 11:06 | PDOC PROGRESS REPORT ---
Subjective-OB Progress Note for:: 05/02/18 Subjective: Doing well, no c/o, bottle feeding, voiding, bleeding normal Physical Exam (OB) Vital Signs: Temp Pulse Resp BP Pulse Ox 97.9 F 68 16 97/54 L 96 05/02/18 08:03 05/02/18 08:03 05/02/18 08:03 05/02/18 08:03 05/02/18 08:03 Intake & Output 05/01/18 05/02/18 05/03/18 06:59 06:59 06:59 Intake Total 1000 2100 1000 Balance 1000 2100 1000 Weight 104.78 kg - PIH/Pre-Eclampsia Clonus: Negative Headache: Absent Epigastric Pain: No Visual Changes: No - Lochia Lochia Amount: Scant < 10 ml Lochia Color: Rubra/Red - Abdomen Description: Tender, Soft, Round Hernia Present: No Fundal Description: Firm, Midline Fundal Height: u/u - u/2 Objective-Diagnostic Laboratory: 05/02/18 05:39 05/02/18 05:39 05/02/18 05/02/18 05:39 05:39 WBC 20.5 H D RBC 3.40 L Hgb 9.2 L Hct 27.4 L MCV 81 MCH 27.0 MCHC 33.5 RDW 14.0 Plt Count 222 Sodium 138.6 Potassium 4.0 Chloride 107 Carbon Dioxide 21 L Anion Gap 11 BUN 6 L Creatinine 0.58 Est GFR ( Amer) > 60 Est GFR (Non-Af Amer) > 60 Glucose 100 Calcium 8.0 L Total Bilirubin 0.7 AST 103 H ALT 135 H Alkaline Phosphatase 112 Total Protein 4.9 L Albumin 2.2 L Assessment and Plan(PN) - Assessment and Plan (1) Previous delivery, delivered Is this a current diagnosis for this admission?: Yes (2) Normal vaginal delivery Is this a current diagnosis for this admission?: Yes (3) Polyhydramnios Qualifiers: Fetus number: single or unspecified fetus Trimester: third trimester Qualified Code(s): O40.3XX0 - Polyhydramnios, third trimester, not applicable or unspecified Is this a current diagnosis for this admission?: Yes - Time Spent with Patient Time with patient: Less than 15 minutes Medications reviewed and adjusted accordingly: Yes - Disposition Anticipated Discharge: Home Within: within 24 hours
[2018-05-03] MEDS: IBUPROFEN 800 MG TABLET PO SCH (05:43)
--- NOTE | 2018-05-03 09:35 | PDOC PROGRESS REPORT ---
Subjective-OB Progress Note for:: 05/03/18 Subjective: Doing well, ready to go home, scant bleeding, voiding, breast/bottle feeding Physical Exam (OB) Vital Signs: Temp Pulse Resp BP Pulse Ox 98.0 F 65 16 110/62 97 05/02/18 19:28 05/02/18 19:28 05/02/18 19:28 05/02/18 19:28 05/02/18 19:28 Intake & Output 05/02/18 05/03/18 05/04/18 06:59 06:59 06:59 Intake Total 2100 3000 Balance 2100 3000 - PIH/Pre-Eclampsia Clonus: Negative Headache: Absent Epigastric Pain: No Visual Changes: No - Lochia Lochia Amount: Scant < 10 ml Lochia Color: Rubra/Red - Abdomen Description: Soft, Round Hernia Present: No Fundal Description: Firm, Midline Fundal Height: u/u - u/2 Objective-Diagnostic Laboratory: 05/02/18 05:39 05/02/18 05:39 Assessment and Plan(PN) - Assessment and Plan (1) Previous delivery, delivered Is this a current diagnosis for this admission?: Yes (2) Normal vaginal delivery Is this a current diagnosis for this admission?: Yes (3) Polyhydramnios Qualifiers: Fetus number: single or unspecified fetus Trimester: third trimester Qualified Code(s): O40.3XX0 - Polyhydramnios, third trimester, not applicable or unspecified Is this a current diagnosis for this admission?: Yes - Time Spent with Patient Time with patient: Less than 15 minutes Medications reviewed and adjusted accordingly: Yes - Disposition Anticipated Discharge: Home Within: within 24 hours
--- NOTE | 2018-05-03 09:40 | PDOC DISCHARGE SUMMARY ---
Final Diagnosis Discharge Date: 05/03/18 - Final Diagnosis (1) Previous delivery, delivered Is this a current diagnosis for this admission?: Yes (2) Normal vaginal delivery Is this a current diagnosis for this admission?: Yes (3) Polyhydramnios Is this a current diagnosis for this admission?: Yes Discharge Data - Discharge Medication Prescriptions: Ferrous Sulfate [Feosol 325 mg Tablet] 325 mg PO BID #60 tablet Home Medications: Vits96/Iron Fum/Folic [ Tablet] 1 tab PO DAILY 06/27/13 Ferrous Sulfate [Feosol 325 mg Tablet] 325 mg PO BID #60 tablet 05/03/18 Gestational Age: 37 Reason(s) for Admission: Induction of Labor, Admission Note: polyhydramnios Procedures: NST, Ultrasound Intrapartum Procedure(s): Spontaneous Vaginal Delivery - [place] Data Baby 1 Female Home with Mother: Yes Complications: No - Diagnosis Test Laboratory: Temp Pulse Resp BP Pulse Ox 98.0 F 65 16 110/62 97 05/02/18 19:28 05/02/18 19:28 05/02/18 19:28 05/02/18 19:28 05/02/18 19:28 04/30/18 04/30/18 05/02/18 20:01 20:32 05:39 RBC 3.97 3.40 L Hgb 10.8 L 9.2 L Hct 32.3 L 27.4 L Urine Opiates Screen NEGATIVE - Discharge information/Instructions Discharge Activity: Activity As Tolerated, No Lifting Over 10 Pounds, No Lifting /Push/Pulling, Pelvic Rest Discharge Diet: As Tolerated, Regular Disposition: HOME, SELF-CARE Follow up with: [facility] in: 4, Weeks
[2018-05-03] MEDS: FERROUS SULFATE 325 MG TABLET PO SCH (10:35)
[2018-05-03] MEDS: SENNOSIDES/DOCUSATE 8.6-50 MG 1 EACH TABLET PO SCH (10:35)
[2018-05-03] MEDS: PRENATAL VITAMIN W DHA CAPSULE PO SCH (10:35)
[2018-05-03] MEDS: DOCUSATE SODIUM 100 MG CAPSULE PO SCH (10:35)
[2018-05-03 12:03] VITALS: BP 100/52
== END 2018-05-03 12:32 | disposition home or self-care (01) | DRG 805 ==
LOC: LR 19:35 → 2S 05-02 00:37
PROVIDERS: ADMIT Obstetrics & Gynecology; ATTEND Student in an Organized Health Care Education/Training Program
PROC: 4A1H7CZ Monitoring of Products of Conception, Cardiac Rate, Via Natural or Artificial Opening (ICD-10-PCS; 2018-04-30)
PROC: 10E0XZZ Delivery of Products of Conception, External Approach (ICD-10-PCS; principal; 2018-05-01)
PROC: 10907ZC Drainage of Amniotic Fluid, Therapeutic from Products of Conception, Via Natural or Artificial Opening (ICD-10-PCS; 2018-05-01)
PROC: 3E033VJ Introduction of Other Hormone into Peripheral Vein, Percutaneous Approach (ICD-10-PCS; 2018-05-01)
PROC: 10H073Z Insertion of Monitoring Electrode into Products of Conception, Via Natural or Artificial Opening (ICD-10-PCS; 2018-05-01)
PROC: 4A1HXCZ Monitoring of Products of Conception, Cardiac Rate, External Approach (ICD-10-PCS; 2018-05-01)
DX: O40.3XX0 Polyhydramnios, third trimester, not applicable or unspecified (principal); K83.1 Obstruction of bile duct; Z37.0 Single live birth; O26.62 Liver and biliary tract disorders in childbirth; O34.211 Maternal care for low transverse scar from previous cesarean delivery; Z88.1 Allergy status to other antibiotic agents; Z3A.37 37 weeks gestation of pregnancy
CPT/HCPCS: 36415; 80053; 80307; 81001; 82239; 85025; 85027; 85610; 85730; 86592; 86850; 86900; 86901; 86920; 94760; C1726; J2405; J2590; J3010; J3490

== ENCOUNTER 2018-06-19 21:46 | Emergency (ER) | payer MEDICAID ==
[2018-06-19] MEDS ORDERED: ACETAMINOPHEN 325 MG TABLET PO ONE (23:17)
[2018-06-20] MEDS ORDERED: ACETAMINOPHEN 325 MG TABLET PO ONE (00:57)
[2018-06-20] MEDS ORDERED: NORMAL SALINE 1000 ML 1,000 ML IV ONE (00:58)
--- NOTE | 2018-06-20 00:59 | ER Document Report ---
ED Medical Screen (RME) - General Chief Complaint: Flu Symptoms Stated Complaint: FEVER Time Seen by Provider: 06/20/18 00:57 Notes: 22-year-old female with chief complaint of sore throat and fevers since yesterday, states she has not had anything to drink all day essentially, denies cough, congestion, nausea or vomiting. Had a baby a few weeks ago. TRAVEL OUTSIDE OF THE [place] IN LAST 30 DAYS: No - Related Data Allergies/Adverse Reactions: cefaclor [From Ceclor] Allergy (Unknown, Verified 04/30/18 20:50) Past Medical History Pulmonary Medical History: Denies: Hx Tuberculosis Neurological Medical History: Denies: Hx Seizures Renal/ Medical History: Denies: Hx Peritoneal Dialysis Past Surgical History: Reports: Hx Cholecystectomy, Hx Tonsillectomy. Denies: Hx Pacemaker - Immunizations Hx Diphtheria, Pertussis, Tetanus Vaccination: Yes - 06/27/13 Physical Exam - Vital signs Vitals: Temp Pulse Resp BP Pulse Ox 100.4 F 132 H 16 117/58 L 99 06/19/18 22:58 06/19/18 22:58 06/19/18 22:58 06/19/18 22:58 06/19/18 22:58 - HEENT Pharynx: Exudate, Tonsillar hypertrophy. No: Peritonsillar abscess, Uvular edema, Potential airway comprom. - Cardiovascular Rhythm: Regular, Tachycardia Heart sounds: Normal auscultation, S1 appreciated, S2 appreciated Course - Vital Signs Vital signs: Temp Pulse Resp BP Pulse Ox 100.4 F 132 H 16 117/58 L 99 06/19/18 22:58 06/19/18 22:58 06/19/18 22:58 06/19/18 22:58 06/19/18 22:58 Doctor's Discharge - Discharge Referrals: TERRIE CHAVIS MD [Primary Care Provider] - Follow up as needed
[2018-06-20 02:28] LABS: ABSOLUTE BASOPHILS # (AUTO) 0.1 10^3/uL (0.0-0.2); ABSOLUTE LYMPHOCYTES (AUTO) 1.9 10^3/uL (0.5-4.7); ABSOLUTE MONOCYTES (AUTO) 1.3 10^3/uL (0.1-1.4); ABSOLUTE NEUT (AUTO) 13.7 10^3/uL (1.7-8.2); BASOPHILS % (AUTO) 0.3 % (0-2); HEMATOCRIT 35.7 % (36.0-47.0); HEMOGLOBIN 11.8 g/dL (12.0-15.5); LYMPHOCYTES % (AUTO) 11.1 % (13-45); MEAN CORPUSCULAR HEMOGLOBIN 25.7 pg (27.0-33.4); MEAN CORPUSCULAR HGB CONC 32.9 g/dL (32.0-36.0); MEAN CORPUSCULAR VOLUME 78 fl (80-97); MONOCYTES % (AUTO) 7.5 % (3-13); PLATELET COUNT 348 10^3/uL (150-450); RED BLOOD COUNT 4.57 10^6/uL (3.72-5.28); RED CELL DISTRIBUTION WIDTH 15.4 % (11.5-14.0); SEGMENTED NEUTROPHILS % (AUTO) 81.1 % (42-78); TOTAL CELLS COUNTED % (AUTO) 100 %
[2018-06-20 02:40] LABS: ANION GAP 14 (5-19); BLOOD UREA NITROGEN 13 mg/dL (7-20); CARBON DIOXIDE 24 mmol/L (22-30); CHLORIDE 102 mmol/L (98-107); GLUCOSE 118 mg/dL (75-110); POTASSIUM 4.1 mmol/L (3.6-5.0)
[2018-06-20] MEDS ORDERED: CLINDAMYCIN HCL 150 MG CAPSULE PO ONE (03:31)
[2018-06-20] MEDS ORDERED: KETOROLAC TROMETHAMINE INJ/PF 30 MG/1 ML SDV IV ONE (03:31)
--- NOTE | 2018-06-20 03:33 | ER Document Report ---
ED ENT - General Chief Complaint: Flu Symptoms Stated Complaint: FEVER Time Seen by Provider: 06/20/18 00:57 Notes: Patient is a 22-year-old female with chief complaint of sore throat and fevers since yesterday, states she has not had anything to drink all day essentially, denies cough, congestion, nausea or vomiting. Denies abdominal pain. Had a baby a few weeks ago. 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 Past medical history of cholecystectomy and tonsillectomy although she has had strep since that time. TRAVEL OUTSIDE OF THE [place] IN LAST 30 DAYS: No - Related Data Allergies/Adverse Reactions: cefaclor [From neoSurgical] Allergy (Unknown, Verified 04/30/18 20:50) Past Medical History - General Information source: Patient - Social History Smoking Status: Never Smoker Frequency of alcohol use: None Drug Abuse: None Lives with: Family Family History: Reviewed & Not Pertinent Pulmonary Medical History: Denies: Hx Tuberculosis Neurological Medical History: Denies: Hx Seizures Renal/ Medical History: Denies: Hx Peritoneal Dialysis Past Surgical History: Reports: Hx Cholecystectomy, Hx Tonsillectomy. Denies: Hx Pacemaker - Immunizations Immunizations up to date: Yes Hx Diphtheria, Pertussis, Tetanus Vaccination: Yes - 06/27/13 Hx Pneumococcal Vaccination: 06/08/12 Review of Systems - Review of Systems Constitutional: See HPI EENT: See HPI Cardiovascular: No symptoms reported Respiratory: No symptoms reported Gastrointestinal: No symptoms reported Genitourinary: No symptoms reported Female Genitourinary: No symptoms reported Musculoskeletal: No symptoms reported Skin: No symptoms reported Hematologic/Lymphatic: No symptoms reported Neurological/Psychological: No symptoms reported Physical Exam - Vital signs Vitals: Temp Pulse Resp BP Pulse Ox 100.4 F 132 H 16 117/58 L 99 06/19/18 22:58 06/19/18 22:58 06/19/18 22:58 06/19/18 22:58 06/19/18 22:58 - Notes Notes: GENERAL: Somewhat ill-appearing, still alert, still interactive and appropriate HEAD: Normocephalic, atraumatic. EYES: Pupils equal, round, and reactive to light. Extraocular movements intact. ENT: Oral pharyngeal examination shows erythema of the oropharynx, she does have tonsillar tissue and these do have exudates with mild swelling, there is no evidence of peritonsillar abscess, normal uvula, unremarkable oropharyngeal exam otherwise. NECK: Full range of motion. Supple. Trachea midline. Bilateral anterior cervical adenopathy, no submandibular swelling. LUNGS: Clear to auscultation bilaterally, no wheezes, rales, or rhonchi. No respiratory distress. HEART: Tachycardia, normal rhythm, no murmur. ABDOMEN: Soft, non-tender. Non-distended. Bowel sounds present in all 4 quadrants. GENITOURINARY: Deferred EXTREMITIES: Moves all 4 extremities spontaneously. No edema, normal radial and dorsalis pedis pulses bilaterally. No cyanosis. BACK: no cervical, thoracic, lumbar midline tenderness. No saddle anesthesia, normal distal neurovascular exam. NEUROLOGICAL: Alert and oriented x3. Normal speech. [cranial nerves II through XII grossly intact]. PSYCH: Normal affect, normal mood. SKIN: Hot, dry, no rash. Course - Re-evaluation Re-evalutation: Patient initially ill-appearing, tachycardic, febrile, appears clinically dehydrated with dry mucous membranes. Patient was given Toradol, IV fluids, she states she has anaphylaxis with cephalosporins and she is unsure about allergy to penicillin based antibiotics therefore she was given clindamycin instead. On reevaluation patient states she feels much better, she states she feels great and she is ready to go home, she is clinically well-appearing, she is tolerating p.o. without any difficulty. Tachycardia almost completely resolved. Discussed follow-up instructions, discussed return precautions, patient states understanding and agreement. - Vital Signs Vital signs: Temp Pulse Resp BP Pulse Ox 98.8 F 105 H 16 105/61 97 06/20/18 03:47 06/20/18 03:47 06/20/18 03:47 06/20/18 03:47 06/20/18 03:47 - Laboratory Result Diagrams: 06/20/18 02:08 06/20/18 02:08 Laboratory results interpreted by me: 06/20/18 06/20/18 02:08 02:08 WBC 17.0 H Hgb 11.8 L Hct 35.7 L MCV 78 L MCH 25.7 L RDW 15.4 H Seg Neutrophils % 81.1 H Lymphocytes % 11.1 L Absolute Neutrophils 13.7 H Glucose 118 H Discharge - Discharge Clinical Impression: Strep pharyngitis, Anterior cervical adenopathy Fever Qualifiers: Fever type: unspecified Qualified Code(s): R50.9 - Fever, unspecified Disposition: HOME, SELF-CARE Additional Instructions: Your evaluation shows strep throat pharyngitis and swollen lymph nodes on your neck. Rest, drink plenty of fluids, take Tylenol or ibuprofen for fever and pain. Take the clindamycin antibiotics to completion, while taking this I recommend a probiotic [id number] to avoid diarrhea and gastrointestinal symptoms. Follow-up with primary care. Return to the emergency department for any concerning worsening symptoms including worsening swelling, spiking fevers, difficulty swallowing, or any other concerning or worsening. Prescriptions: Clindamycin HCl 300 mg PO Q8H #30 capsule Forms: Return to Work Referrals: TERRIE CHAVIS MD [ACTIVE STAFF] - Follow up as needed
[2018-06-20] MEDS ORDERED: ACETAMINOPHEN 325 MG TABLET ONE (03:40)
[2018-06-20 05:45] VITALS: BP 104/56
== END 2018-06-20 05:50 | disposition home or self-care (01) ==
LOC: ER 21:46
DX: J02.0 Streptococcal pharyngitis (principal); R50.9 Fever, unspecified; R59.0 Localized enlarged lymph nodes; Z90.89 Acquired absence of other organs; Z88.1 Allergy status to other antibiotic agents
CPT/HCPCS: 99283; 96361; 96374; 36415; 87880; 85025; 80048; J3490 ×2; J1885; J7030

== ENCOUNTER 2018-10-19 13:36 | Emergency (ER) | payer MEDICAID ==
[2018-10-19] MEDS ORDERED: IPRATROPIUM/ALBUTEROL 0.5-2.5 MG/3 ML AMPUL NEB ONE (14:11)
--- NOTE | 2018-10-19 14:13 | ER Document Report ---
ED Medical Screen (RME) - General Chief Complaint: Shortness Of Breath Stated Complaint: FEVER Time Seen by Provider: 10/19/18 14:06 Mode of Arrival: Ambulatory Information source: Patient Notes: Patient is an otherwise healthy 23-year-old female presenting with chief complaint of cough and shortness of breath since Saturday. Patient states she has now any fevers at home as high as 102. Patient reports that she has not felt quite right since she had her flu shot back in August. Patient is tachycardic at time of assessment with a heart rate in the 120s. Patient reports she is not vomiting but has been having a hard time keeping up with fluid intake. Exam: Scattered rhonchi bilaterally. Bronchospasm with deep breaths. I have greeted and performed a rapid initial assessment of this patient. A comprehensive ED assessment and evaluation of the patient, analysis of test results and completion of the medical decision making process will be conducted by additional ED providers. Dictation of this chart was performed using voice recognition software; therefore, there may be some unintended grammatical errors. TRAVEL OUTSIDE OF THE [place] IN LAST 30 DAYS: No - Related Data Allergies/Adverse Reactions: cefaclor [From Ceclor] Allergy (Unknown, Verified 04/30/18 20:50) Past Medical History Pulmonary Medical History: Denies: Hx Tuberculosis Neurological Medical History: Denies: Hx Seizures Renal/ Medical History: Denies: Hx Peritoneal Dialysis Past Surgical History: Reports: Hx Section, Hx Cholecystectomy, Hx Tonsillectomy. Denies: Hx Pacemaker - Immunizations Immunizations up to date: Yes Hx Diphtheria, Pertussis, Tetanus Vaccination: Yes - 06/27/13 Physical Exam - Vital signs Vitals: Temp Pulse Resp BP Pulse Ox 99.4 F 126 H 16 120/73 97 10/19/18 14:01 10/19/18 14:01 10/19/18 14:01 10/19/18 14:01 10/19/18 14:01 Course - Vital Signs Vital signs: Temp Pulse Resp BP Pulse Ox 99.4 F 126 H 16 120/73 97 10/19/18 14:01 10/19/18 14:01 10/19/18 14:01 10/19/18 14:01 10/19/18 14:01
[2018-10-19 15:03] LABS: ABSOLUTE LYMPHOCYTES (AUTO) 0.9 10^3/uL (0.5-4.7); ABSOLUTE MONOCYTES (AUTO) 0.6 10^3/uL (0.1-1.4); ABSOLUTE NEUT (AUTO) 4.3 10^3/uL (1.7-8.2); BASOPHILS % (AUTO) 0.6 % (0-2); EOSINOPHILS % (AUTO) 0.6 % (0-6); HEMATOCRIT 36.5 % (36.0-47.0); HEMOGLOBIN 12.1 g/dL (12.0-15.5); LYMPHOCYTES % (AUTO) 14.9 % (13-45); MEAN CORPUSCULAR HEMOGLOBIN 25.7 pg (27.0-33.4); MEAN CORPUSCULAR HGB CONC 33.2 g/dL (32.0-36.0); MEAN CORPUSCULAR VOLUME 77 fl (80-97); PLATELET COUNT 322 10^3/uL (150-450); RED BLOOD COUNT 4.73 10^6/uL (3.72-5.28); RED CELL DISTRIBUTION WIDTH 16.3 % (11.5-14.0); SEGMENTED NEUTROPHILS % (AUTO) 73.9 % (42-78); TOTAL CELLS COUNTED % (AUTO) 100 %; WHITE BLOOD COUNT 5.9 10^3/uL (4.0-10.5)
[2018-10-19 15:10] LABS: ALANINE AMINOTRANSFERASE 28 U/L (9-52); ALKALINE PHOSPHATASE 51 U/L (38-126); ANION GAP 13 (5-19); ASPARTATE AMINO TRANSFERASE 17 U/L (14-36); BILIRUBIN,DIRECT 0.2 mg/dL (0.0-0.4); BILIRUBIN,TOTAL 0.6 mg/dL (0.2-1.3); BLOOD UREA NITROGEN 9 mg/dL (7-20); CALCIUM 8.9 mg/dL (8.4-10.2); CARBON DIOXIDE 25 mmol/L (22-30); CHLORIDE 102 mmol/L (98-107); GLUCOSE 101 mg/dL (75-110); POTASSIUM 3.8 mmol/L (3.6-5.0); SODIUM 139.7 mmol/L (137-145); TOTAL PROTEIN 7.7 g/dL (6.3-8.2)
[2018-10-19] MEDS ORDERED: PREDNISONE 20 MG TABLET PO ONE (15:44)
[2018-10-19] MEDS ORDERED: NORMAL SALINE 1000 ML 1,000 ML IV ONE (15:45)
--- NOTE | 2018-10-19 15:53 | ER Document Report ---
ED General - General Chief Complaint: Shortness Of Breath Stated Complaint: FEVER Time Seen by Provider: 10/19/18 14:06 Mode of Arrival: Ambulatory Information source: Patient TRAVEL OUTSIDE OF THE [place] IN LAST 30 DAYS: No - HPI Patient complains to provider of: Persistent cough, chest wall hurting, shortness of breath, fever Onset: Other - Since the month of August Onset/Duration: Persistent Quality of pain: No pain Severity: Moderate Pain Level: 3 Associated symptoms: Chills, Nonproductive cough, Fever, Shortness of breath. denies: Diarrhea, Nausea, Vomiting Exacerbated by: Denies Relieved by: Denies Similar symptoms previously: No Recently seen / treated by doctor: No Notes: 23-year-old healthy female here with constant cough and spells of shortness of breath and low-grade fever since August. Patient relates her symptoms started shortly after receiving the influenza vaccine. 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 - Related Data Allergies/Adverse Reactions: cefaclor [From [facility]] Allergy (Unknown, Verified 04/30/18 20:50) Past Medical History - General Information source: Patient - Social History Smoking Status: Never Smoker Family History: Reviewed & Not Pertinent Patient has suicidal ideation: No Patient has homicidal ideation: No Pulmonary Medical History: Denies: Hx Tuberculosis Neurological Medical History: Denies: Hx Seizures Renal/ Medical History: Denies: Hx Peritoneal Dialysis Past Surgical History: Reports: Hx Section, Hx Cholecystectomy, Hx Tonsillectomy. Denies: Hx Pacemaker - Immunizations Immunizations up to date: Yes Hx Diphtheria, Pertussis, Tetanus Vaccination: Yes - 06/27/13 Hx Pneumococcal Vaccination: 06/08/12 Review of Systems - Review of Systems Notes: Constitutional: Positive for fevers. No chills. EENT: No eye redness. No eye pain. No ear pain. No sore throat. Cardiovascular: No chest pain. No palpitations. Respiratory: Positive for cough. Positive shortness of breath. No respiratory distress. Gastrointestinal: No abdominal pain. No nausea, vomiting, or diarrhea. Genitourinary: Atraumatic. No lesions. No pain. No discharge. Musculoskeletal: Atraumatic. No swelling. No deformities. Skin: No rash or lesions. Lymphatic: No swollen lymph nodes. Neurologic: No headache. No syncope. Psychiatric: No suicidal or homicidal ideation. Physical Exam - Vital signs Vitals: Temp Pulse Resp BP Pulse Ox 99.4 F 126 H 16 120/73 97 10/19/18 14:01 10/19/18 14:01 10/19/18 14:01 10/19/18 14:01 10/19/18 14:01 - Notes Notes: General: Well-developed, well-nourished. In no acute distress. Non-toxic appearing. Cardiac: Well-perfused. Sinus tachycardia regular rhythm. No murmurs, rubs, or gallops. Pulmonary: No respiratory distress. No cyanosis. Bilateral lung fiels are clear to auscultation. Abdominal: Non-distended. Non-rigid. Bowels sounds are present in all four quadrants. No guarding or rebound. HEENT: Head is atraumatic. Conjunctivae not reddened. No tearing. PERRL. EOMI. Orbits atraumatic. No periorbital swelling or erythema. Oropharynx is without erythema, swelling, or exudates. Neck: Supple. No adenopathy. No meningismus. Dermatologic: Warm with good turgor. No rash. Atraumatic. Chest: Atraumatic. No chest wall tenderness to palpation. Musculoskeletal: Moves all extremities well. No range of motion deficits. no muscular or joint tenderness. No paraspinal muscle tenderness. no midline spinal tenderness or step-off. Genitourinary: Examination deferred Neurologic: No gross neurologic deficits. Psychiatric: Normal mood. Course - Re-evaluation Re-evalutation: 10/19/18 15:56 We are waiting for the results of the chest x-ray. Is actually tachycardic and will need to be hydrated to make sure that her heart rate comes down to the normal level. Her sats are good. I do not think she has any risk factors for pulmonary embolism. 10/19/18 16:43 Radiologist is reading the chest x-ray as a left upper lobe infiltrate. We will go ahead and give the patient her first dose of Zithromax IV piggyback and finish her fluids. We will recheck her vitals after the fluids have infused. - Vital Signs Vital signs: Temp Pulse Resp BP Pulse Ox 99.4 F 126 H 16 120/73 97 10/19/18 14:01 10/19/18 14:01 10/19/18 14:01 10/19/18 14:01 10/19/18 14:01 - Laboratory Result Diagrams: 10/19/18 14:34 10/19/18 14:34 Laboratory results interpreted by me: 10/19/18 14:34 MCV 77 L MCH 25.7 L RDW 16.3 H Discharge - Discharge Clinical Impression: Left upper lobe pneumonia Qualifiers: Pneumonia type: due to unspecified organism Qualified Code(s): J18.1 - Lobar pneumonia, unspecified organism Condition: Good Disposition: HOME, SELF-CARE Instructions: Pneumonia ([facility]) Additional Instructions: Start your 4 days of Zithromax starting tomorrow. You have already received her first dose through the IV here today. I will give you a metered-dose inhaler for albuterol in case he needed for wheezing. Also prescription for Hycodan cough syrup. Follow-up with your primary care doctor in the next couple days Prescriptions: Hydrocodone Bit/Homatropine [Hycodan Syrup 5-1.5 mg/5 ml Ud Cup] 5 ml PO Q6HP PRN #120 ml PRN Reason: Albuterol Sulfate [Proair HFA Inhalation Aerosol 8.5 gm MDI] 2 puff IH Q4H PRN #1 mdi PRN Reason: Azithromycin [Zithromax 250 mg Tablet] 250 mg PO DAILY 4 Days #4 tablet Referrals: [facility] [Provider Group] - 10/21/18
--- NOTE | 2018-10-19 15:59 | RADIOLOGY REPORT (SQ) ---
EXAM DESCRIPTION: CHEST 2 VIEWS COMPLETED DATE/TIME: 10/19/2018 3:05 pm REASON FOR STUDY: COUGH, FEVER COMPARISON: None. EXAM PARAMETERS: NUMBER OF VIEWS: two views TECHNIQUE: Digital Frontal and Lateral radiographic views of the chest acquired. RADIATION DOSE: NA LIMITATIONS: none FINDINGS: LUNGS AND PLEURA: Airspace opacity at the left lower lobe. No pleural effusion or pneumot horax. MEDIASTINUM AND HILAR STRUCTURES: No masses or contour abnormalities. HEART AND VASCULAR STRUCTURES: Heart normal size. No evidence for failure. BONES: No acute findings. HARDWARE: None in the chest. IMPRESSION: Airspace opacity at the left lower lobe, suggestive of pneumonia. TECHNICAL DOCUMENTATION: JOB ID: [id number] [employer]- All Rights Reserved Reading location - IP/workstation name: [email or web address]
[2018-10-19] MEDS ORDERED: AZITHROMYCIN INJ 500 MG VIAL IV ONE (16:45)
[2018-10-19 19:32] VITALS: BP 118/68
== END 2018-10-19 19:30 | disposition home or self-care (01) ==
LOC: ER 13:36
DX: J18.1 Lobar pneumonia, unspecified organism (principal); R06.02 Shortness of breath; R50.9 Fever, unspecified; Z88.1 Allergy status to other antibiotic agents; R00.0 Tachycardia, unspecified
CPT/HCPCS: 94640; 99285; 96361; 96365; 36415; 85025; 80053; 71046; J7512; J7030; J0456; J7620

== ENCOUNTER 2019-03-05 12:17 | Emergency (ER) | payer MEDICAID ==
--- NOTE | 2019-03-05 12:48 | ER Document Report ---
HPI - HPI Time Seen by Provider: 03/05/19 12:36 Pain Level: 4 Notes: 23-year-old female presents the ED for complaints of headache, dizziness, nausea after hitting her head approximately 4 days ago. She reports her son jumped up at the same time she was bending down and the front of her forehead hit the back of his head, no change in level consciousness or neuro changes. Eating and drinking without issues. Has tried [id number] ibuprofen without for relief. Headache is approximately 7 out of 10, bilateral. Denies prior history of traumatic brain injury, head trauma, concussions. Patient did leave work today to be evaluated. Denies fevers, chills, chest pain,palpitations, shortness of breath, dyspnea, nausea, vomiting, diarrhea, abdominal pain, hematuria,blurred vision, double vision, loss of vision, speech changes, LH, dizziness, syncope, wheezing, ST, URI, neck pain, weakness, bowel or bladder dysfunction, saddle anesthesia, numbness or tingling in bilateral upper or lower extremities equally, muscle paralysis, weakness in bilateral upper or lower extremities equally or rash. Denies IV drug use. - REPRODUCTIVE Reproductive: DENIES: : Past Medical History - General Information source: Patient - Social History Smoking Status: Unknown if Ever Smoked Family History: Reviewed & Not Pertinent Pulmonary Medical History: Denies: Hx Tuberculosis Neurological Medical History: Denies: Hx Seizures Renal/ Medical History: Denies: Hx Peritoneal Dialysis Past Surgical History: Reports: Hx Section, Hx Cholecystectomy, Hx Tonsillectomy. Denies: Hx Pacemaker - Immunizations Immunizations up to date: Yes Hx Diphtheria, Pertussis, Tetanus Vaccination: Yes - 06/27/13 Hx Pneumococcal Vaccination: 06/08/12 Vertical Provider Document - CONSTITUTIONAL Agree With Documented VS: Yes Exam Limitations: No Limitations General Appearance: WD/WN Notes: PHYSICAL EXAMINATION: GENERAL: Well-appearing, well-nourished and in no acute distress. HEAD: Atraumatic, normocephalic. EYES: Pupils equal round and reactive to light, extraocular movements intact, conjunctiva are normal. ENT: Nares patent, oropharynx clear without exudates. Moist mucous membranes. NECK: Normal range of motion, supple without lymphadenopathy LUNGS: Breath sounds clear to auscultation bilaterally and equal. No wheezes rales or rhonchi. HEART: Regular rate and rhythm without murmurs ABDOMEN: Soft, nontender, nondistended abdomen. No guarding, no rebound. No masses appreciated. Female : deferred Musculoskeletal: Normal range of motion, no pitting or edema. No cyanosis. NEUROLOGICAL: Cranial nerves grossly intact. Normal speech, normal gait. Normal sensory, motor exams. PERRLA, EOMI. Full motor and sensory function throughout. 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 Tongue midline. No pronator drift. No ataxia. Neck with APROM. Raises eyebrows. Strength is 5 out of 5 in bilateral upper and lower extremities equally.Speaks in full sentences. No weakness on one side. Romberg gait steady able to walk straight line. Able to recall 5 objects. PSYCH: Normal mood, normal affect. SKIN: Warm, Dry, normal turgor, no rashes or lesions noted. - INFECTION CONTROL TRAVEL OUTSIDE OF THE [place] IN LAST 30 DAYS: No Course - Re-evaluation Re-evalutation: 03/05/19 14:32 Afebrile vital stable no distress. Nurses notes reviewed. Patient having headache, dizziness, nausea, pain for the last 4 days, CT head negative for any acute findings per radiology. Discussed concussion protocol such as being woken up every hour by someone you live with, be asked orientation questions and to call 911 if any neurological changes occur such as speech changes, weakness on one side, unable to orient, nausea, vomiting, or severe headache, etc. pt verbalized understanding of this care and agreed to plan of care. discussed worrisome symptoms as well as reasons for return over what time frame. patient states understanding and is agreeable with plan. Advised to take it easy for the next few days, avoid any form for reading, iPhone, tablet, TV. Toradol 60 mg IM . Discussed dim room, avoid caffeine, soda, migraine triggers. Keep a migraine journal. To work note given for 4 days, return if feeling better. Follow-up with primary care provider within the next 24 to 48 hours. After performing a Medical Screening Examination, I estimate there is LOW risk for ACUTE GLAUCOMA, TEMPORAL ARTERITIS, MENINGITIS, INCRANIAL HEMORRHAGE, or ISC HEMIC STROKE thus I consider the discharge disposition reasonable. I have reevaluated this patient multiple times and no significant life threatening changes are noted. The patient and I have discussed the diagnosis and risks, and we agree with discharging home with close follow-up with the understanding that symptoms and presentations can change. We also discussed returning to the Emergency Department immediately if new or worsening symptoms occur. We have discussed the symptoms which are most concerning (e.g., changing or worsening symptoms, new numbness or weakness, vomiting, fever) that necessitate immediate return. - Vital Signs Vital signs: Temp Pulse Resp BP Pulse Ox 98.3 F 84 18 119/63 99 03/05/19 12:26 03/05/19 12:26 03/05/19 12:03/05/19 12:03/05/19 12:26 Discharge - Discharge Clinical Impression: Headache, Postconcussion syndrome Condition: Stable Disposition: HOME, SELF-CARE Instructions: Headache ([facility]), Post-Concussion Syndrome ([facility]), Toradol Injection ([facility]) Additional Instructions: Post-Concussion Syndrome Post-concussion syndrome often follows a mild head injury. Dizziness, mild nausea, mild headache, trouble concentrating, and a general sense of "not being right" may persist for a week or two. This is a frequent complication of concussion. However, if the symptoms worsen, or new symptoms develop, you should be re-examined by the physician. There is no specific cure for post-concussion syndrome. You can take mild pain medication such as ibuprofen or acetaminophen. While you should not drive if you are dizzy, you can get back to your regular activities as quickly as the symptoms will allow. And while vigorous exercise may worsen the headache, mild physical activity often is helpful. Sitting and thinking about your symptoms will worsen them. If difficulties continue, you may need referral for special therapy to help you regain full mental function. Call the physician if you are worsening, or if symptoms are still present in one week. Report any new symptoms immediately.Concussion You have suffered a concussion -- a temporary loss of certain brain functions due to a mild brain injury. The recovery is usually rapid and complete. The temporary problems occurring with a concussion can include loss of consciousness, dizziness, nausea, vomiting, and confusion. Repeat concussions can cause brain damage. In the future, avoid activities that will cause a blow to your head. Wear a helmet for sports such as snowboarding, biking, or skating. It's important that someone be with you for the first 24 hours. During this time, do not exercise or drive a vehicle. Do not take any pain medication stronger than acetaminophen unless prescribed by the physician. Any significant changes should be reported immediately to the physician. Signs of a problem may include: (1) Mental confusion (2) Incoordination or staggering (3) Repeated or forceful vomiting (4) Clear or bloody drainage from ear, mouth, or nose (5) Severe headache, not relieved by acetaminophen or prescribed pain medication (6) Failure to improve in 24 hours Return immediately for any new or worsening symptoms. Follow up with primary care provider, call tomorrow to make followup appointment. Forms: Return to Work Referrals: MINDY HENDRIX MD [COMMUNITY BASED STAFF] - Follow up as needed PROSPER CRENSHAW MD [COMMUNITY BASED STAFF] - Follow up as needed
--- NOTE | 2019-03-05 13:27 | RADIOLOGY REPORT (SQ) ---
EXAM DESCRIPTION: CT HEAD WITHOUT COMPLETED DATE/TIME: 03/05/2019 1:08 pm REASON FOR STUDY: hit head x 4 days ago, YOUSIF, dizziness, nausea, -loc COMPARISON: None. TECHNIQUE: Axial images acquired through the brain without intravenous contrast. Images reviewed wi th bone, brain and subdural windows. Additional sagittal and coronal reconstructions were generated. Images stored on PACS. All CT scanners at this facility use dose modulation, iterative reconstruction, and/or weight based d osing when appropriate to reduce radiation dose to as low as reasonably achievable (ALARA). [facility]: Dose Right [facility]: CareDose [facility]: Dose Right [facility]: Teradose 4D [facility]: Smart Trendmeon RADIATION DOSE: CT Rad equipment meets quality standard of care and radiation dose reduction techniq ues were employed. CTDIvol: 53.2 mGy. DLP: 1070 mGy-cm. mGy. LIMITATIONS: None. FINDINGS: VENTRICLES: Normal size and contour. CEREBRUM: No masses. No hemorrhage. No midline shift. No evidence for acute infarction. Normal gra y/white matter differentiation. No areas of low density in the white matter. CEREBELLUM: No masses. No hemorrhage. No alteration of density. No evidence for acute infarction. EXTRAAXIAL SPACES: No fluid collections. No masses. ORBITS AND GLOBE: No intra- or extraconal masses. Normal contour of globe without masses. CALVARIUM: No fracture. PARANASAL SINUSES: No fluid or mucosal thickening. SOFT TISSUES: No mass or hematoma. OTHER: No other significant finding. IMPRESSION: No acute intracranial pathology. No noncontrast CT findings to explain headache. EVIDENCE OF ACUTE STROKE: NO. COMMENT: Quality ID # [id number]: Final reports with documentation of one or more dose reduction techniques (e.g., Automated exposure control, adjustment of the mA and/or kV according to patient size, use of iterative reconstruction technique) TECHNICAL DOCUMENTATION: JOB ID: [id number] [employer]- All Rights Reserved Reading location - IP/workstation name: [email or web address]
[2019-03-05] MEDS ORDERED: KETOROLAC TROMETHAMINE 60 MG/2 ML SDV IM ONE (13:54)
[2019-03-05 15:16] VITALS: BP 118/74
== END 2019-03-05 15:15 | disposition home or self-care (01) ==
LOC: ER 12:17
DX: G44.319 Acute post-traumatic headache, not intractable (principal); F07.81 Postconcussional syndrome; R42 Dizziness and giddiness; R11.0 Nausea; Z90.49 Acquired absence of other specified parts of digestive tract
CPT/HCPCS: 99284; 96372; 70450; J1885

== ENCOUNTER 2020-05-24 16:07 | Emergency (ER) | payer SELFPAY ==
--- NOTE | 2020-05-24 16:25 | ER Document Report ---
ED Medical Screen (RME) - General Chief Complaint: Abdominal Pain Stated Complaint: ABDOMINAL PAIN,VAGINAL DISCHARGE Time Seen by Provider: 05/24/20 16:21 Mode of Arrival: Ambulatory Information source: Patient Notes: 24-year-old female presents to ED for complaint of pelvic cramping and brown vaginal discharge x2 days. She states her last menstrual period started on 05/09/2020. She states she has never had a second menstrual cycle in the same month before. She states the pain is about a 2/5 at this time but it is a level 4 at nighttime. She states it is just in the pelvic area. She states she does have more frequent urination. She does not have any burning or any other urinary symptoms. We will get blood urine and have her seen by another provider. I have greeted and performed a rapid initial assessment of this patient. A comprehensive ED assessment and evaluation of the patient, analysis of test results and completion of medical decision making process will be conducted by an additional ED providers. TRAVEL OUTSIDE OF THE [place] IN LAST 30 DAYS: No - Related Data Allergies/Adverse Reactions: cefaclor [From Ceclor] Allergy (Unknown, Verified 05/24/20 16:20) Past Medical History Pulmonary Medical History: Denies: Hx Tuberculosis Neurological Medical History: Denies: Hx Seizures Renal/ Medical History: Denies: Hx Peritoneal Dialysis Past Surgical History: Reports: Hx Section, Hx Cholecystectomy, Hx Tonsillectomy. Denies: Hx Pacemaker - Immunizations Immunizations up to date: Yes Hx Diphtheria, Pertussis, Tetanus Vaccination: Yes - 06/27/13 Physical Exam - Vital signs Vitals: Temp Pulse Resp BP Pulse Ox 97.3 F 83 16 127/83 H 99 05/24/20 16:12 05/24/20 16:12 05/24/20 16:12 05/24/20 16:12 05/24/20 16:12 Course - Vital Signs Vital signs: Temp Pulse Resp BP Pulse Ox 97.3 F 83 16 127/83 H 99 05/24/20 16:12 05/24/20 16:12 05/24/20 16:12 05/24/20 16:12 05/24/20 16:12
[2020-05-24 17:22] LABS: ABSOLUTE BASOPHILS # (AUTO) 0.1 10^3/uL (0.0-0.2); ABSOLUTE EOSINOPHILS # (AUTO) 0.3 10^3/uL (0.0-0.6); ABSOLUTE LYMPHOCYTES (AUTO) 2.4 10^3/uL (0.5-4.7); ABSOLUTE MONOCYTES (AUTO) 0.7 10^3/uL (0.1-1.4); ABSOLUTE NEUT (AUTO) 5.1 10^3/uL (1.7-8.2); BASOPHILS % (AUTO) 0.7 % (0-2); EOSINOPHILS % (AUTO) 2.9 % (0-6); HEMATOCRIT 39.3 % (36.0-47.0); HEMOGLOBIN 13.1 g/dL (12.0-15.5); LYMPHOCYTES % (AUTO) 28.1 % (13-45); MEAN CORPUSCULAR HEMOGLOBIN 27.2 pg (27.0-33.4); MEAN CORPUSCULAR HGB CONC 33.3 g/dL (32.0-36.0); MEAN CORPUSCULAR VOLUME 82 fl (80-97); MONOCYTES % (AUTO) 8.3 % (3-13); PLATELET COUNT 373 10^3/uL (150-450); RED BLOOD COUNT 4.82 10^6/uL (3.72-5.28); RED CELL DISTRIBUTION WIDTH 13.8 % (11.5-14.0); TOTAL CELLS COUNTED % (AUTO) 100 %; WHITE BLOOD COUNT 8.5 10^3/uL (4.0-10.5)
[2020-05-24 17:27] LABS: APPEARANCE,URINE CLEAR; BILIRUBIN,URINE NEGATIVE (NEGATIVE); COLOR,URINE YELLOW; GLUCOSE, URINE NEGATIVE (NEGATIVE); KETONES,URINE NEGATIVE (NEGATIVE); LEUKOCYTE ESTERASE,URINE NEGATIVE (NEGATIVE); NITRITE,URINE NEGATIVE (NEGATIVE); PROTEIN,URINE NEGATIVE (NEGATIVE); URINE SPECIFIC GRAVITY 1.019; UROBILINOGEN,URINE NEGATIVE mg/dL (<2.0)
[2020-05-24 17:40] LABS: ALBUMIN 4.4 g/dL (3.5-5.0); ALKALINE PHOSPHATASE 62 U/L (38-126); ANION GAP 10 (5-19); ASPARTATE AMINO TRANSFERASE 19 U/L (14-36); BILIRUBIN,TOTAL 0.3 mg/dL (0.2-1.3); BLOOD UREA NITROGEN 14 mg/dL (7-20); CALCIUM 9.7 mg/dL (8.4-10.2); CARBON DIOXIDE 28 mmol/L (22-30); CHLORIDE 102 mmol/L (98-107); GLUCOSE 93 mg/dL (75-110); POTASSIUM 4.1 mmol/L (3.6-5.0); TOTAL PROTEIN 7.8 g/dL (6.3-8.2)
--- NOTE | 2020-05-24 18:36 | ER Document Report ---
ED General - General Chief Complaint: Pelvic Pain Stated Complaint: ABDOMINAL PAIN,VAGINAL DISCHARGE Time Seen by Provider: 05/24/20 16:21 Primary Care Provider: [facility] [Provider Group] - Follow up as needed Mode of Arrival: Ambulatory TRAVEL OUTSIDE OF THE [place] IN LAST 30 DAYS: No - HPI Notes: Patient is a 24 y/o female with no medical history who presents for pelvic pain and vaginal discharge that began yesterday. Patient describes the pelvic pain as cramping that is worse than her typical menstrual cramps. She describes the vag inal discharge as brown in color with dark clots. Her LMP ended two weeks ago and she normally has very regular menstrual periods. She denies nausea, vomiting, abdominal pain, dysuria, and vaginal pain. She is with one sexual partner. She is not on any control. - Related Data Allergies/Adverse Reactions: cefaclor [From Ceclor] Allergy (Unknown, Verified 05/24/20 16:20) Past Medical History - General Information source: Patient - Social History Smoking Status: Never Smoker Chew tobacco use (# tins/day): No Frequency of alcohol use: None Drug Abuse: None Family History: Reviewed & Not Pertinent Pulmonary Medical History: Denies: Hx Tuberculosis Neurological Medical History: Denies: Hx Seizures Renal/ Medical History: Denies: Hx Peritoneal Dialysis Past Surgical History: Reports: Hx Section, Hx Cholecystectomy, Hx Tonsillectomy. Denies: Hx Pacemaker - Immunizations Immunizations up to date: Yes Hx Diphtheria, Pertussis, Tetanus Vaccination: Yes - 06/27/13 Hx Pneumococcal Vaccination: 06/08/12 Review of Systems - Review of Systems Constitutional: No symptoms reported EENT: No symptoms reported Cardiovascular: No symptoms reported Respiratory: No symptoms reported Gastrointestinal: No symptoms reported Genitourinary: No symptoms reported Female Genitourinary: See HPI Musculoskeletal: No symptoms reported Skin: No symptoms reported Hematologic/Lymphatic: No symptoms reported Neurological/Psychological: No symptoms reported Physical Exam - Vital signs Vitals: Temp Pulse Resp BP Pulse Ox 97.3 F 83 16 127/83 H 99 05/24/20 16:12 05/24/20 16:12 05/24/20 16:12 05/24/20 16:12 05/24/20 16:12 - Notes Notes: PHYSICAL EXAMINATION: VITALS: Vitals reviewed and within normal limits. GENERAL: Well-appearing, well-nourished and in no acute distress. HEAD: Atraumatic, normocephalic. LUNGS: Breath sounds clear to auscultation bilaterally and equal. No wheezes, rales, or rhonchi. HEART: Regular, rate, and rhythm without murmurs. ABDOMEN: Soft, nontender, normoactive bowel sounds. No guarding, no rebound. No masses appreciated. FEMALE GENITOURINARY: Normal external genitalia with no visible lesions. Speculum exam: cervix closed with brown discharged visualized. Bimanual exam: No cervical motion tenderness. No adnexal tenderness of masses palpable. EXTREMITIES: Normal range of motion, no pitting or edema. No cyanosis. NEUROLOGICAL: No focal neurological deficits. Moves all extremities spontaneously and on command. PSYCH: Normal mood, normal affect. SKIN: Warm, Dry, normal turgor, no rashes or lesions noted. Course - Re-evaluation Re-evalutation: Patient is a 24 y/o female who presents with pelvic pain and vaginal discharge for one day. Vital signs are stable and within normal limits. Pelvic exam shows brownish bailey vaginal discharge in the vaginal vault and no CMT. CBC and CMP are unremarkable and within normal limits. UA shows moderate blood but is otherwise normal. Wet mount shows 3+ bacteria and 1+ WBCs. No trichomonas or yeast seen. Chlamydia and gonorrhea still pending. Wet mount is consistent with bacterial vaginosis. Prescription for metronidazole 500mg BID for 7 days will be given. I do not feel it is necessary to to treat the patient prophylactically for chlamydia and gonorrhea and she is low risk. We discussed that we would inform her if her results are positive. Patient instructed to follow up with [facility] once she has completed the course of antibiotics. Return precautions and follow up instructions given. Patient understands and is in agreement with the plan. Patient will be discharged home. - Vital Signs Vital signs: Temp Pulse Resp BP Pulse Ox 97.3 F 83 16 127/83 H 99 05/24/20 16:12 05/24/20 16:12 05/24/20 16:12 05/24/20 16:12 05/24/20 16:12 - Laboratory Result Diagrams: 05/24/20 16:49 05/24/20 16:49 Laboratory results interpreted by me: 05/24/20 16:49 Urine Blood MODERATE H Discharge - Discharge Clinical Impression: Bacterial vaginosis, Pelvic pain, Vaginal discharge Condition: Stable Disposition: HOME, SELF-CARE Additional Instructions: Vaginosis, Bacterial Your exam shows you have bacterial vaginosis. This condition is due to an overgrowth of bacteria in the vagina. Symptoms may include vaginal itching or pain, a smelly discharge, and sometimes burning with urination. Normally this is not transmitted by sexual contact. Vaginosis can be treated with oral or topical antibiotics. Metronidazole (Flagyl) pills are usually effective - do not take with alcohol and for three days after as it will make you sick. Topical vaginal creams include Cleocin and Metro-Gel. You should avoid sexual contact until your symptoms are all better. Call the doctor if you develop pelvic pain, fever, or problems with ur ination, or if you don't improve as expected. Prescriptions: Metronidazole 500 mg PO BID 7 Days #14 tablet Referrals: [facility] [Provider Group] - Follow up as needed
[2020-05-24 19:50] LABS: BACTERIA (WET MOUNT) 3+ BACTERIA SEEN; T.VAGINALIS (WET MOUNT) NO TRICHOMONAS SEEN; WBCS (WET MOUNT) 1+ WBCS SEEN; YEAST (WET MOUNT) NO YEAST SEEN
[2020-05-24] MEDS ORDERED: METRONIDAZOLE 500 MG TABLET PO ONE (20:08)
--- NOTE | 2020-05-24 20:26 | RADIOLOGY REPORT (SQ) ---
US PELVIS TRANSVAGINAL CLINICAL STATEMENT: pelvic pain Findings: Uterus is anteverted and measures 10.3 x 4.6 x 3.6 cm. Endometrium measures 1.1 cm in thickness. Cervix measures 2.5 cm in length and is closed. Right ovary measures 3.9 x 1.6 x 1.9 cm. Left ovary measures 3.0 x 1.9 x 1.5 cm. Vascular flow preserved within both ovaries on color and spectral Doppler imaging. No abnormal adnexal masses. No ascites. IMPRESSION: No suspicious findings for ovarian torsion. No abnormal adnexal masses.
[2020-05-24 20:44] VITALS: BP 109/68
[2020-05-24 21:21] LABS: CHLAM PCR NOT DETECTED (NOT DETECT)
== END 2020-05-24 20:50 | disposition home or self-care (01) ==
LOC: ER 16:07
DX: N76.0 Acute vaginitis (principal); B96.89 Other specified bacterial agents as the cause of diseases classified elsewhere; R10.2 Pelvic and perineal pain; Z90.49 Acquired absence of other specified parts of digestive tract
CPT/HCPCS: 36415; 76830; 80053; 81001; 84703; 85025; 87086; 87210; 87491; 87591; 93976; 99284

== ENCOUNTER 2020-07-21 11:45 | Emergency (ER) | payer SELFPAY ==
[2020-07-21] MEDS ORDERED: NORMAL SALINE 1000 ML 1,000 ML IV ONE (13:35)
[2020-07-21] MEDS ORDERED: DIPHENHYDRAMINE HCL 50 MG/ML VIAL IV ONE (13:35)
[2020-07-21] MEDS ORDERED: KETOROLAC TROMETHAMINE INJ/PF 30 MG/1 ML SDV IV ONE (13:35)
[2020-07-21] MEDS ORDERED: METOCLOPRAMIDE HCL INJ/PF 10 MG/2 ML SDV IV ONE (13:35)
--- NOTE | 2020-07-21 14:00 | ER Document Report ---
Entered by VANE BURDEN SCRIBE 07/21/20 1335 Acting as scribe for:JOSE ANTONIO ANDRES MD ED Headache - General Chief Complaint: Headache Stated Complaint: SHARP PAIN IN THE BACK OF HER HEAD Time Seen by Provider: 07/21/20 13:26 Mode of Arrival: Ambulatory Information source: Patient Notes: This 25-year-old female patient presents to the emergency department today with complaints of a headache for about a month. Patient indicates that the area of discomfort is at the base of her skull on the right-hand side. She works in childcare and reports that she does not have any repetitive movements at work that she thinks could be causing this discomfort. TRAVEL OUTSIDE OF THE [place] IN LAST 30 DAYS: No - Related Data Allergies/Adverse Reactions: cefaclor [From Ceclor] Allergy (Unknown, Verified 05/24/20 16:20) Past Medical History - General Information source: Patient - Social History Smoking Status: Never Smoker Cigarette use (# per day): No Frequency of alcohol use: None Drug Abuse: None Occupation: childcare worker Lives with: Family Family History: Reviewed & Not Pertinent - Medical History Medical History: Negative Past Surgical History: Reports: Hx Section, Hx Cholecystectomy, Hx Tonsillectomy - Immunizations Immunizations up to date: Yes Hx Diphtheria, Pertussis, Tetanus Vaccination: Yes - 06/27/13 Hx Pneumococcal Vaccination: 06/08/12 Review of Systems - Review of Systems Constitutional: No symptoms reported EENT: No symptoms reported Cardiovascular: No symptoms reported Respiratory: No symptoms reported Gastrointestinal: No symptoms reported Genitourinary: No symptoms reported Female Genitourinary: No symptoms reported Musculoskeletal: No symptoms reported Skin: No symptoms reported Hematologic/Lymphatic: No symptoms reported Neurological/Psychological: See HPI, Headaches -: Yes All other systems reviewed and negative Physical Exam - Vital signs Vitals: Temp Pulse Resp BP Pulse Ox 98.7 F 74 16 132/62 H 100 07/21/20 11:50 07/21/20 11:50 07/21/20 11:50 07/21/20 11:50 07/21/20 11:50 - Notes Notes: Physical Exam: General: Alert, appears well. HEENT: Normocephalic. Atraumatic. PERRL. Extraocular movements intact. Oropharynx clear. Neck: Supple. Non-tender. Right-sided posterior cervical muscles are tender to palpation, there is exquisite tenderness to palpation at the base of the skull on the right. Respiratory: No respiratory distress. Clear and equal breath sounds bilaterally. Cardiovascular: Regular rate and rhythm. Abdominal: Obese. Non-tender. No distension. Normal Bowel Sounds. Back: No gross abnormalities. Extremities: Moves all four extremities. Upper extremities: Normal inspection. Normal ROM. Lower extremities: Normal inspection. No edema. Normal ROM. Neurological: Normal cognition. AAOx4. Normal speech. Psychological: Normal affect. Normal Mood. Skin: Warm. Dry. Normal color. Course - Re-evaluation Re-evalutation: 07/21/20 15:29 On reevaluation, the patient is wide-awake. She states her headache is completely gone. There is no tenderness to palpate the previously painful area. She feels quite comfortable in going home at this time. - Vital Signs Vital signs: Temp Pulse Resp BP Pulse Ox 98.5 F 71 15 128/69 H 100 07/21/20 15:13 07/21/20 15:13 07/21/20 15:13 07/21/20 15:13 07/21/20 15:13 - Laboratory Results Result Diagrams: 07/21/20 13:56 07/21/20 13:56 Laboratory Results Interpreted: 07/21/20 13:56 [facility] 26.6 L RDW 14.3 H Critical Laboratory Results Reviewed: No Critical Results - Radiology Results Radiology Results Interpreted: 07/21/20 14:59 CT scan of the head did not show acute abnormality. Critical Radiology Results Reviewed: No Critical Results Discharge - Discharge Clinical Impression: Tension-type headache Qualifiers: Headache chronicity pattern: chronic headache Intractability: not intractable Qualified Code(s): G44.229 - Chronic tension-type headache, not intractable Condition: Stable Disposition: HOME, SELF-CARE Additional Instructions: Tension Headache: Your problem has been diagnosed as muscle tension headache. This very common type of headache occurs because of tightness in the muscles of the head and neck. The cause may be neck or jaw joint problems, but most commonly the cause is emotional stress. The headache may last hours or days. The treatment of uncomplicated tension headaches is rest and pain medication. Often, the newer antiinflammatory pain medications are prescribed, as these also decrease the irritability of the painful tissues. Muscle relaxers, cold packs, or warm packs are sometimes helpful. Anti-anxiety medication or narcotics are sometimes needed temporarily, but are best avoided in the long run. Your doctor has evaluated your headache problem, and finds no evidence of a serious health problem as a cause for the headache. If your headache becomes more severe, or if new symptoms develop (such as fever, stiff neck, vomiting, or decreasing alertness) you should be re-examined by the physician. Try taking Tylenol, ibuprofen, and Benadryl and relaxing in a cool quiet room the next time you get a headache similar to this. Follow-up with a local primary care provider if you continue to have the headaches. RETURN TO THE EMERGENCY ROOM IF ANY NEW OR WORSENING SYMPTOMS. I personally performed the services described in the documentation, reviewed and edited the documentation which was dictated to the scribe in my presence, and it accurately records my words and actions.
[2020-07-21 14:24] LABS: ABSOLUTE BASOPHILS # (AUTO) 0.1 10^3/uL (0.0-0.2); ABSOLUTE EOSINOPHILS # (AUTO) 0.3 10^3/uL (0.0-0.6); ABSOLUTE LYMPHOCYTES (AUTO) 1.9 10^3/uL (0.5-4.7); ABSOLUTE MONOCYTES (AUTO) 0.6 10^3/uL (0.1-1.4); ABSOLUTE NEUT (AUTO) 5.5 10^3/uL (1.7-8.2); BASOPHILS % (AUTO) 1.1 % (0-2); EOSINOPHILS % (AUTO) 4.1 % (0-6); HEMATOCRIT 38.4 % (36.0-47.0); HEMOGLOBIN 12.7 g/dL (12.0-15.5); LYMPHOCYTES % (AUTO) 22.9 % (13-45); MEAN CORPUSCULAR HEMOGLOBIN 26.6 pg (27.0-33.4); MEAN CORPUSCULAR HGB CONC 33.2 g/dL (32.0-36.0); MEAN CORPUSCULAR VOLUME 80 fl (80-97); MONOCYTES % (AUTO) 7.5 % (3-13); PLATELET COUNT 348 10^3/uL (150-450); RED BLOOD COUNT 4.79 10^6/uL (3.72-5.28); RED CELL DISTRIBUTION WIDTH 14.3 % (11.5-14.0); SEGMENTED NEUTROPHILS % (AUTO) 64.4 % (42-78); TOTAL CELLS COUNTED % (AUTO) 100 %; WHITE BLOOD COUNT 8.5 10^3/uL (4.0-10.5)
--- NOTE | 2020-07-21 14:27 | RADIOLOGY REPORT (SQ) ---
EXAM DESCRIPTION: CT HEAD WITHOUT IMAGES COMPLETED DATE/TIME: 07/21/2020 2:19 pm REASON FOR STUDY: Right occipital headache X 3 months COMPARISON: None. TECHNIQUE: Axial images acquired through the brain without intravenous contrast. Images reviewed wi th bone, brain and subdural windows. Additional sagittal and coronal reconstructions were generated. Images stored on PACS. All CT scanners at this facility use dose modulation, iterative reconstruction, and/or weight based d osing when appropriate to reduce radiation dose to as low as reasonably achievable (ALARA). [facility]: Dose Right [facility]: CareDose [facility]: Dose Right [facility]: Teradose 4D [facility]: Smart [facility] [employer] RADIATION DOSE: CT Rad equipment meets quality standard of care and radiation dose reduction techniq ues were employed. CTDIvol: 53.2 mGy. DLP: 1017 mGy-cm. mGy. LIMITATIONS: None. FINDINGS: VENTRICLES: Normal size and contour. CEREBRUM: No masses. No hemorrhage. No midline shift. No evidence for acute infarction. Normal gra y/white matter differentiation. No areas of low density in the white matter. CEREBELLUM: No masses. No hemorrhage. No alteration of density. No evidence for acute infarction. EXTRAAXIAL SPACES: No fluid collections. No masses. ORBITS AND GLOBE: No intra- or extraconal masses. Normal contour of globe without masses. CALVARIUM: No fracture. PARANASAL SINUSES: No fluid or mucosal thickening. SOFT TISSUES: No mass or hematoma. OTHER: No other significant finding. IMPRESSION: NORMAL BRAIN CT WITHOUT CONTRAST. EVIDENCE OF ACUTE STROKE: NO. COMMENT: Quality ID # [id number]: Final reports with documentation of one or more dose reduction techniques (e.g., Automated exposure control, adjustment of the mA and/or kV according to patient size, use of iterative reconstruction technique) TECHNICAL DOCUMENTATION: JOB ID: [id number] 2010 [employer]- All Rights Reserved Reading location - IP/workstation name: [email or web address]
[2020-07-21 14:45] LABS: ALKALINE PHOSPHATASE 61 U/L (38-126); ANION GAP 6 (5-19); ASPARTATE AMINO TRANSFERASE 20 U/L (14-36); BILIRUBIN,DIRECT 0.2 mg/dL (0.0-0.4); BILIRUBIN,TOTAL 0.3 mg/dL (0.2-1.3); BLOOD UREA NITROGEN 14 mg/dL (7-20); CARBON DIOXIDE 29 mmol/L (22-30); CHLORIDE 104 mmol/L (98-107); GLUCOSE 88 mg/dL (75-110); TOTAL PROTEIN 7.5 g/dL (6.3-8.2)
[2020-07-21 15:14] VITALS: BP 128/69
== END 2020-07-21 15:55 | disposition home or self-care (01) ==
LOC: ER 11:45
DX: G44.229 Chronic tension-type headache, not intractable (principal); M54.2 Cervicalgia; Z88.8 Allergy status to other drugs, medicaments and biological substances
CPT/HCPCS: 99285; 96361; 96374; 96375; 36415; 84703; 85025; 80053; 70450; J1200; J1885; J2765; J7030